=== PATIENT | male | born 1950 | race Hispanic/Latino ===

== ENCOUNTER 2017-09-18 17:15 | Observation (INO) | payer MEDICARE ==
[~2017-09-18] VITALS: Ht 172.7 cm; Wt 105.7 kg
[2017-09-18] MEDS ORDERED: ALBUTEROL SULF 0.083% NEB SOLN 3 ML NEB NEB STA (18:16)
[2017-09-18] MEDS ORDERED: SODIUM CHLORIDE 0.9% 1000ML 1,000 ML IV STA (18:16)
[2017-09-18] MEDS ORDERED: AZITHROMYCIN 500MG/NS 250 ML 250 ML IV STA (18:16)
[2017-09-18] MEDS ORDERED: IPRATROPIUM BROMIDE 0.02% 2.5 ML NEB NEB STA (18:16)
[2017-09-18] MEDS ORDERED: IBUPROFEN 600 MG TAB PO STA (18:18)
[2017-09-18] MEDS ORDERED: CEFTRIAXONE SOD 1 GM VIAL IV ONE (18:30)
--- NOTE | 2017-09-18 19:30 | Diagnostic Imaging Report ---
Examination: Single AP view of the chest. COMPARISON: None. INDICATION: Chest pain IMPRESSION: 1. Lines and Tubes: None 2. Lungs are mildly hypoinflated, with patchy opacity in the left retrocardiac region. This likely represents atelectasis given the low lung volumes, however, developing pneumonia is a consideration in the appropriate clinical setting. 3. Cardiomediastinal silhouette is normal. Pulmonary vasculature is normal. 4. No acute bony abnormalities. Signed by: Dr. Andrea Hayes M.D. on 09/18/2017 7:26 PM
[2017-09-18] MEDS ORDERED: IBUPROFEN 600 MG TAB ONE (22:21)
[2017-09-18 22:43] LABS: BASOPHILS # (AUTO) 0.1 (0.0-0.1); BASOPHILS % 0.8 % (0.0-1.0); EOSINOPHILS # (AUTO) 0.2 (0.0-0.4); EOSINOPHILS % 3.4 % (0.0-6.0); HEMOGLOBIN 14.6 g/dL (14.0-18.0); LYMPHOCYTES # (AUTO) 1.5 (1.0-3.2); LYMPHOCYTES % 24.1 % (18.0-39.1); MEAN CORPUSCULAR VOLUME 91.3 fL (81-99); MONOCYTES # (AUTO) 0.8 (0.2-0.8); MONOCYTES % 12.7 % (4.4-11.3); NEUTROPHILS # (AUTO) 3.7 (2.1-6.9); NEUTROPHILS % 58.8 % (38.7-80.0); PLATELET COUNT 173 x10e3/uL (140-360); RED BLOOD COUNT 4.71 x10e6/uL (4.3-5.7); RED CELL DISTRIBUTION WIDTH 12.9 % (11.7-14.4)
[2017-09-18 22:50] LABS: INR 0.94
[2017-09-18 22:51] LABS: PARTIAL THROMBOPLASTIN TIME 33.2 seconds (23.8-35.5)
[2017-09-18 23:00] LABS: ALBUMIN 3.8 g/dL (3.5-5.0); ALBUMIN/GLOBULIN RATIO 0.9 (0.8-2.0); ANION GAP 13.5 mmol/L (8-16); CALCIUM 8.9 mg/dL (8.4-10.2); CREATININE, SERUM 1.35 mg/dL (0.72-1.25); POTASSIUM 3.5 mmol/L (3.5-5.1)
[2017-09-18 23:05] LABS: B-TYPE NATRIURETIC PEPTIDE2 < 10.0 pg/mL (0-100)
[2017-09-18 23:06] LABS: CREATINE KINASE MB 0.9 ng/mL (0.00-5.00); TROPONIN I 0.008 ng/mL (0-0.300)
[2017-09-19] VITALS (7 sets, daily range): BP systolic 147–185; BP diastolic 68–86
[2017-09-19] MEDS ORDERED: IPRATROPIUM BROMIDE 0.02% 2.5 ML NEB NEB PRN
[2017-09-19] MEDS ORDERED: ALBUTEROL SULF 0.083% NEB SOLN 3 ML NEB NEB PRN
[2017-09-19] MEDS ORDERED: ACETAMINOPHEN 325 MG TAB PO PRN
[2017-09-19] MEDS: CEFTRIAXONE SOD 1 GM VIAL IV SCH ×2 (01:10→12:46)
[2017-09-19] MEDS: OSELTAMIVIR PHOSPHATE 75 MG CAP PO SCH ×3 (01:11→18:19)
[2017-09-19] MEDS: SODIUM CHLORIDE 0.9% 1000ML 1,000 ML IV SCH ×2 (03:24→20:14)
[2017-09-19 06:19] LABS: BASOPHILS % 0.8 % (0.0-1.0); EOSINOPHILS # (AUTO) 0.2 (0.0-0.4); EOSINOPHILS % 3.7 % (0.0-6.0); HEMATOCRIT 39.6 % (38.2-49.6); HEMOGLOBIN 13.4 g/dL (14.0-18.0); LYMPHOCYTES # (AUTO) 1.4 (1.0-3.2); LYMPHOCYTES % 27.8 % (18.0-39.1); MEAN CORPUSCULAR HEMOGLOBIN 30.9 pg (28-32); MEAN CORPUSCULAR HGB CONC 33.8 g/dL (31-35); MEAN CORPUSCULAR VOLUME 91.2 fL (81-99); MONOCYTES # (AUTO) 0.8 (0.2-0.8); MONOCYTES % 15.7 % (4.4-11.3); NEUTROPHILS # (AUTO) 2.5 (2.1-6.9); NEUTROPHILS % 51.8 % (38.7-80.0); PLATELET COUNT 155 x10e3/uL (140-360); RED BLOOD COUNT 4.34 x10e6/uL (4.3-5.7); RED CELL DISTRIBUTION WIDTH 12.7 % (11.7-14.4)
[2017-09-19 06:42] LABS: ALANINE AMINOTRANSFERASE 16 IU/L (0-55); ALBUMIN 3.3 g/dL (3.5-5.0); ALBUMIN/GLOBULIN RATIO 0.9 (0.8-2.0); ALKALINE PHOSPHATASE 53 IU/L (40-150); ANION GAP 13.2 mmol/L (8-16); BLOOD UREA NITROGEN 22 mg/dL (7-26); BUN/CREATININE RATIO 17 (6-25); CALCIUM 8.6 mg/dL (8.4-10.2); CARBON DIOXIDE 28 mmol/L (22-29); CHLORIDE 102 mmol/L (98-107); CREATINE KINASE 115 IU/L (30-200); CREATININE, SERUM 1.33 mg/dL (0.72-1.25); EST GLOMERULAR FILTRATION RATE 54 ML/MIN (60-); GLUCOSE 118 mg/dL (74-118); POTASSIUM 3.2 mmol/L (3.5-5.1); SODIUM 140 mmol/L (136-145)
[2017-09-19 06:51] LABS: TROPONIN I 0.015 ng/mL (0-0.300)
--- NOTE | 2017-09-19 07:07 | Diagnostic Imaging Report ---
EXAM: CT CHEST WO DATE: 09/19/2017 6:00 AM Time stamp on exam: 0628 hours INDICATION: Flu, shortness of breath COMPARISON: AP view of the chest September 18, 2017 TECHNIQUE: Multidetector CT scanning of the chest was performed. Coronal and sagittal multiplanar reformations were obtained. Routine protocol performed. IV Contrast: None CTDIvol has been reviewed. It is below the limits set by the Radiation Protocol Committee (RPC). FINDINGS: LUNGS AND AIRWAYS: The trachea and major bronchi are unremarkable. No consolidations or edema. Mild bibasilar bronchial thickening. Bibasilar linear atelectasis/scarring. PLEURA: No effusions or pneumothorax. HEART, MEDIASTINUM, VESSELS: Scattered coronary artery calcifications and calcification of the thoracic aorta, otherwise unremarkable. UPPER ABDOMEN: Unremarkable MUSCULOSKELETAL: No acute findings. IMPRESSION: Mild bibasilar bronchial thickening. No consolidations. Signed by: Dr. Edith Ledbetter M.D. on 09/19/2017 7:03 AM
[2017-09-19] MEDS ORDERED: POTASSIUM CHLORIDE 20 MEQ TAB CR PO ONE (09:30)
[2017-09-19] MEDS ORDERED: ATORVASTATIN CA10 MG PO (11:31)
[2017-09-19] MEDS ORDERED: NORVASC5 MG PO (11:31)
[2017-09-19] MEDS ORDERED: LOSARTAN-HCTZ1 EAC1 PO (11:31)
[2017-09-19] MEDS ORDERED: ASPIRIN325 MG PO (11:31)
[2017-09-19] MEDS: ASPIRIN 325 MG TAB PO SCH (12:46)
[2017-09-19] MEDS: LOSARTAN POTASSIUM 100 MG TAB PO SCH (12:46)
[2017-09-19] MEDS: HYDROCHLOROTHIAZIDE 25 MG TAB PO SCH (12:46)
[2017-09-19] MEDS: AMLODIPINE BESYLATE 5 MG TAB PO SCH (12:47)
--- NOTE | 2017-09-19 14:17 | Consultation ---
DATE OF CONSULTATION: September 19, 2017 PULMONARY CONSULTATION REASON FOR THE CONSULT: Cough and shortness of breath. Patient was called by Dr. Mckeon from the office that he is having lung infection and needs to come to the hospital. HPI: Mr. Shay is a 66-year-old male who was having cough, congestion, and shortness of breath going on for last few days and he went to see Dr. Mckeon, who did an x-ray. Patient received a shot in the office. The x-ray was done and it showed patchy infiltrate. The patient was advised to come to the hospital. In the hospital, patient underwent influenza testing, which turned out to be positive and patient was admitted for further treatment. He denies any chest pain, nausea, vomiting, diarrhea. REVIEW OF SYSTEMS GENERAL: Was having fever and chills. HEENT: Denies any head trauma or head injury. ENT: Denies any earache, nosebleed, throat pain. CVS: Denies any chest pain. The rest of the review of systems are negative except as in HPI. PAST MEDICAL HISTORY: Hypertension, history of stroke. PAST SURGICAL HISTORY: Hernia repair, right leg surgery after accident. FAMILY HISTORY AND SOCIAL HISTORY: Lifelong nonsmoker. Does not smoke, does not drink. PHYSICAL EXAMINATION VITALS: Temperature 97.8, pulse of 53, blood pressure 147/68, respiratory rate of 18. SKIN: Warm and dry. HEENT: Head atraumatic, normocephalic. Pupils reactive. NECK: Supple. No JVD. CHEST: Prolonged expiratory phase, some crackles on the bases; otherwise clear. HEART: S1, S2 audible. ABDOMEN: Soft, nontender, and nondistended. EXTREMITIES: No clubbing, cyanosis, or edema. NEUROLOGIC: Awake, alert, oriented. No focal neurologic deficit. The rest of the exam has been normal. LABORATORY DATA: White count of 4000, hemoglobin 13.4, platelets 155,000. Chemistry; sodium 140, potassium 3.2, chloride of 102, BUN 22, creatinine 1.33. CT of the chest, I have reviewed the images, possibility of a small left lower lobe infiltrate. ASSESSMENT AND PLAN: Mr. Shay is a 66-year-old male presented with fever, chills, tested positive for flu, a possibility of pneumonia as well. CURRENT PROBLEMS 1. Pneumonia. 2. Influenza. 3. History of stroke. 4. Hypertension. PLAN: Agree with current treatment with Rocephin and Tamiflu. Agree with nebulizer treatment as well. Thank you for this consult. We will follow along with you. Job#: [id number] PAT
[2017-09-19 15:45] LABS: CREATINE KINASE MB 1.5 ng/mL (0.00-5.00); TROPONIN I 0.013 ng/mL (0-0.300)
--- NOTE | 2017-09-19 16:20 | Consultation ---
DATE OF CONSULTATION: September 19, 2017 REASON FOR CONSULTATION: Pneumonia. HISTORY OF PRESENT ILLNESS: This patient is a very pleasant 56-year-old gentleman who comes in with 2 days' history of cough, shortness of breath and not feeling well, feverish. The patient had a chest x-ray which showed patchy infiltrates, and so he was admitted. On evaluation, he did have influenza A, which was positive. The patient is being admitted and infectious disease was consulted. He is telling me he is doing much better now. PAST MEDICAL HISTORY: Hypertension, stroke. PAST SURGICAL HISTORY: Hernia repair, leg surgery. ALLERGIES: NKA. SOCIAL HISTORY: There is no smoking, drug abuse, alcohol abuse. FAMILY HISTORY: Otherwise unremarkable. REVIEW OF SYSTEMS: At present time he is doing much better. HEENT: There is no headache, visual changes or hearing changes. GI: There is no nausea, no vomiting, no diarrhea. CARDIAC: There is no arrhythmia. NECK: No seizure activity. SKIN: No other rashes. PHYSICAL EXAMINATION: GENERAL: Is currently alert, oriented and does not seem to be in acute distress. VITALS: Stable, currently afebrile. HEENT: Not icteric. NECK: Supple. CHEST: Clear. COR: No murmur. ABDOMEN: Soft. Bowel sounds present. EXTREMITIES: Trace edema. IMPRESSION: 1. Influenza A. 2. Pneumonia. Clinically patient is doing much better now. 3. Chronic kidney disease. RECOMMENDATIONS: I agree with Tamiflu. Will finish it in 7 days. I agree with Rocephin and azithromycin. He is already feeling better. Can switch to oral antibiotics soon. Will see how he is doing tomorrow. Will follow with you. Thank you very much for asking me to see this patient. Job#: [id number]
[2017-09-19] MEDS: AZITHROMYCIN 500MG/NS 250 ML 250 ML IV SCH (20:14)
[2017-09-19] MEDS: ATORVASTATIN 10 MG TAB PO SCH (20:14)
[2017-09-20] VITALS: BP 153/72
[2017-09-20] MEDS: CEFTRIAXONE SOD 1 GM VIAL IV SCH ×2 (00:15→13:12)
[2017-09-20] MEDS: SODIUM CHLORIDE 0.9% 1000ML 1,000 ML IV SCH ×2 (01:56→16:12)
[2017-09-20 03:33] LABS: BILIRUBIN,URINE NEGATIVE (NEGATIVE); KETONES,URINE TRACE (NEGATIVE); LEUKOCYTE ESTERASE ,URINE NEGATIVE (NEGATIVE); NITRITE,URINE NEGATIVE (NEGATIVE); PROTEIN,URINE DIPSTICK NEGATIVE (NEGATIVE); URINE UROBILINOGEN 0.2 mg/dL (0.2 - 1)
[2017-09-20 03:34] LABS: CLARITY,URINE CLEAR (CLEAR); COLOR,URINE YELLOW (YELLOW)
[2017-09-20 03:40] LABS: BACTERIA,URINE RARE /HPF; RBC,URINE 0-5 /HPF (0-5); WBC,URINE (MAN) 0-5 /HPF (0-5)
[2017-09-20 05:10] VITALS: BP 165/90
[2017-09-20 08:07] VITALS: BP 181/86
[2017-09-20] MEDS: AZITHROMYCIN 500MG/NS 250 ML 250 ML IV SCH (08:40)
[2017-09-20] MEDS: OSELTAMIVIR PHOSPHATE 75 MG CAP PO SCH ×2 (08:40→16:35)
[2017-09-20] MEDS: ASPIRIN 325 MG TAB PO SCH (08:41)
[2017-09-20] MEDS: AMLODIPINE BESYLATE 5 MG TAB PO SCH (08:41)
[2017-09-20] MEDS: LOSARTAN POTASSIUM 100 MG TAB PO SCH (08:41)
[2017-09-20] MEDS: HYDROCHLOROTHIAZIDE 25 MG TAB PO SCH (08:41)
[2017-09-20] MEDS ORDERED: ASPIRIN 325 MG TAB PO SCH (09:00)
[2017-09-20] MEDS ORDERED: NON-FORMULARY MEDICATION (Losartan/Hydrochlorothiazide (Losartan-Hctz 100-25 Mg Tab) 1 TAB PO SCH (09:00)
[2017-09-20] MEDS ORDERED: CLONIDINE HCL 0.1 MG TAB PO PRN (09:15)
[2017-09-20 11:37] VITALS: BP 129/72
[2017-09-20 15:13] VITALS: BP 171/78
[2017-09-20] MEDS ORDERED: ONDANSETRON HCL INJ 2 MG/ML VIAL IV PRN (20:15)
[2017-09-20] MEDS: ATORVASTATIN 10 MG TAB PO SCH (21:05)
[2017-09-21 02:33] VITALS: BP 149/67
[2017-09-21 06:38] VITALS: BP 145/72
[2017-09-21 06:48] LABS: ANION GAP 13.6 mmol/L (8-16); BLOOD UREA NITROGEN 17 mg/dL (7-26); BUN/CREATININE RATIO 19 (6-25); CALCIUM 8.8 mg/dL (8.4-10.2); CARBON DIOXIDE 28 mmol/L (22-29); CHLORIDE 102 mmol/L (98-107); CREATININE, SERUM 0.91 mg/dL (0.72-1.25); EST GLOMERULAR FILTRATION RATE > 60 ML/MIN (60-); GLUCOSE 103 mg/dL (74-118); POTASSIUM 3.6 mmol/L (3.5-5.1); SODIUM 140 mmol/L (136-145)
[2017-09-21 07:30] VITALS: BP 163/77
[2017-09-21] MEDS: AZITHROMYCIN 500MG/NS 250 ML 250 ML IV SCH (08:22)
[2017-09-21] MEDS: ASPIRIN 325 MG TAB PO SCH (08:22)
[2017-09-21] MEDS: LOSARTAN POTASSIUM 100 MG TAB PO SCH (08:23)
[2017-09-21] MEDS: HYDROCHLOROTHIAZIDE 25 MG TAB PO SCH (08:23)
[2017-09-21] MEDS: OSELTAMIVIR PHOSPHATE 75 MG CAP PO SCH ×2 (08:23→16:52)
[2017-09-21] MEDS: AMLODIPINE BESYLATE 5 MG TAB PO SCH (08:23)
[2017-09-21 11:44] VITALS: BP 141/64
[2017-09-21] MEDS: CEFTRIAXONE SOD 1 GM VIAL IV SCH ×2 (12:49)
[2017-09-21 15:49] VITALS: BP 157/69
--- NOTE | 2017-09-21 16:41 | Diagnostic Imaging Report ---
PROCEDURE: X-RAY CHEST, TWO VIEWS COMPARISON: Chest x-ray 09/18/17. INDICATIONS: FLU, COUGH FINDINGS: LUNGS: Bibasilar atelectasis has improved. There is residual atelectasis or scar in the lingula. The diaphragms remain flattened suggestive of pulmonary hyperinflation. There is no evidence of mass or infiltrate. The pulmonary vascular markings are normal. PLEURA: No effusions or pneumothorax. HEART \T\ MEDIASTINUM: The heart is within normal size-limits. BONES \T\ SOFT TISSUES: No new findings. CONCLUSION: Improved bibasilar atelectasis. No new cardiopulmonary process. Dictated by: Nahid Gaines M.D. on 09/21/2017 at 16:49 Electronically approved by: Nahid Gaines M.D. on 09/21/2017 at 16:49
[2017-09-21 20:00] VITALS: BP 164/68
[2017-09-21] MEDS: ATORVASTATIN 10 MG TAB PO SCH (21:10)
[2017-09-21] MEDS: SODIUM CHLORIDE 0.9% 1000ML 1,000 ML IV SCH (21:38)
[2017-09-22] VITALS: BP 146/71
[2017-09-22] MEDS: CEFTRIAXONE SOD 1 GM VIAL IV SCH ×2 (01:07→11:38)
[2017-09-22 04:00] VITALS: BP 136/78
[2017-09-22 08:32] VITALS: BP 177/101
[2017-09-22] MEDS: LOSARTAN POTASSIUM 100 MG TAB PO SCH (08:51)
[2017-09-22] MEDS: AZITHROMYCIN 500MG/NS 250 ML 250 ML IV SCH (08:51)
[2017-09-22] MEDS: OSELTAMIVIR PHOSPHATE 75 MG CAP PO SCH (08:51)
[2017-09-22] MEDS: ASPIRIN 325 MG TAB PO SCH (08:51)
[2017-09-22] MEDS: AMLODIPINE BESYLATE 5 MG TAB PO SCH (08:51)
[2017-09-22] MEDS: HYDROCHLOROTHIAZIDE 25 MG TAB PO SCH (08:51)
[2017-09-22 09:54] VITALS: BP 154/74
[2017-09-22 09:55] VITALS: BP 154/74
--- NOTE | 2017-09-22 10:56 | Discharge Summary ---
Mr. Shay is a 66-year-old man with history of CVA and hypertension in the past, came to the emergency room complaining of body aches, fever, cough and phlegm, and back pain. He was found to have influenza A infection and probably pneumonia and started on Tamiflu and IV antibiotics for several days. He stated that he has some sputum with blood. He was seen by recreational assistant, but he refused the bronchoscopy. All the risks and benefits were discussed with him and he wants to go home today. He states he is feeling much better. PHYSICAL EXAMINATION GENERAL: He is awake and alert. VITAL SIGNS: Temperature is 96.3, pulse is 76, and O2 is 95. HEART: Regular rate. LUNGS: Clear to auscultation. ABDOMEN: Soft. LABORATORY DATA: On the blood work, potassium 3.6, creatinine 0.91, and glucose 103. White count is 4.90, hemoglobin 13.4, and hematocrit 39.6. DISCHARGE DIAGNOSES: 1. Influenza A. 2. Pneumonia. 3. Hypertension. 4. Bloody sputum. The plan is to discharge the patient home to continue his home medications. He is going to also be on p.o. Levaquin and p.o. Tamiflu upon discharge. Due to the blood in the sputum, recreational assistant wanted to do a bronchoscopy in the morning, but patient refused. He wants to go home. So, the plan is to discharge him home if it is okay with the consultants and have him follow up with me next week. All this was discussed with patient, all questions were answered to satisfaction. He is to call me or come back to the emergency room if any recurrent problems, fever, or bloody sputum. He understood and agreed. Please see home medication reconciliation list. MAREK CISSE MD Job#: [id number] PHILLIP
[2017-09-22 12:17] VITALS: BP 162/77
== END 2017-09-22 13:59 | disposition home or self-care (01) ==
LOC: ER 17:15 → ERHOLD 09-19 00:56 → IMCU 09-19 02:12
PROVIDERS: ADMIT Internal Medicine; ATTEND Internal Medicine
DX: J09.X1 Influenza due to identified novel influenza A virus with pneumonia (principal); J12.9 Viral pneumonia, unspecified; I89.0 Lymphedema, not elsewhere classified; N18.9 Chronic kidney disease, unspecified; Z86.73 Personal history of transient ischemic attack (TIA), and cerebral infarction without residual deficits; I12.9 Hypertensive chronic kidney disease with stage 1 through stage 4 chronic kidney disease, or unspecified chronic kidney disease; R04.2 Hemoptysis
CPT/HCPCS: 36415 ×2; 71010; 71020; 71250; 80048; 80053 ×2; 81001; 82550 ×2; 82553 ×2; 83518; 83605; 83690; 83880; 84484 ×2; 85025 ×2; 85610; 85730; 87040; 87070; 87086; 87400; 96361; 99284; G0378 ×4; J0456 ×4; J0696 ×4; J2405; J7030 ×3

== ENCOUNTER → 2017-09-18 | Outpatient (CLI) | payer MEDICARE ==
[~2017-09-18] MED LIST: ASPIRIN325 MG PO; ATORVASTATIN CA10 MG PO; LOSARTAN-HCTZ1 EAC1 PO; NORVASC5 MG PO
--- NOTE | 2017-09-18 14:38 | Diagnostic Imaging Report ---
PROCEDURE: Frontal and lateral views of the chest. COMPARISON: None. INDICATIONS: COUGH, DYSPNEA FINDINGS: Lines/tubes: None. Lungs: Limited by low lung volumes and body habitus. Mild hazy opacities in bilateral base. Pleura: There is no pleural effusion or pneumothorax. Heart and mediastinum: The heart and the mediastinum are normal. Bones: No acute bony abnormality. IMPRESSION: Mild hazy opacities in bilateral base, likely atelectasis. Developing pneumonia cannot be entirely excluded. Dictated by: Trung Baugh M.D. on 09/18/2017 at 14:46 Electronically approved by: Trung Baugh M.D. on 09/18/2017 at 14:46
== END ==
LOC: RAD 13:55
PROVIDERS: ATTEND Internal Medicine
DX: R05 Cough (principal)
CPT/HCPCS: 71020

== ENCOUNTER → 2018-01-17 | Outpatient (CLI) | payer MEDICARE ==
--- NOTE | 2018-01-17 15:31 | Diagnostic Imaging Report ---
PROCEDURE:X-RAY LEFT HEEL COMPARISON:None. INDICATIONS:LEFT HEEL PAIN FINDINGS: See conclusion. CONCLUSION: No acute fracture or dislocation of the left calcaneus. Dictated by: Trung Baugh M.D. on 01/17/2018 at 15:33 Electronically approved by: Trung Baugh M.D. on 01/17/2018 at 15:33
== END ==
LOC: RAD 13:31
PROVIDERS: ATTEND Internal Medicine
DX: M79.672 Pain in left foot (principal)

== ENCOUNTER → 2018-10-26 | Outpatient (CLI) | payer MEDICARE ==
--- NOTE | 2018-10-26 12:10 | Diagnostic Imaging Report ---
EXAM: US ABDOMEN COMPLETE DATE: 10/26/2018 9:56 AM INDICATION: Left sided abdominal pain. COMPARISON: None TECHNIQUE: Transverse and longitudinal [place] scale and color doppler sonographic images of the abdomen was obtained. FINDINGS: There is no evidence of fluid or masses seen in the area of clinical concern in the left abdomen. LIVER Measures 15.0 cm in the right midclavicular line. Increased echogenicity of the liver with normal contour, no masses. SPLEEN Measures 10.2 cm in maximum diameter. Normal echogenicity, no masses. GALLBLADDER No gallbladder wall thickening, distension, stone, or pericholecystic fluid. Negative reported sonographic Rodriguez's sign. BILE DUCTS No intra nor extra-hepatic biliary dilation. Common bile duct measures 0.3 cm PANCREAS: Limited evaluation due to overlying bowel gas. RIGHT KIDNEY: Measures 12.2 x 5.4 x 5.5 cm Echogenicity: Normal Collecting System: No hydronephrosis Stones: None Cyst/Mass: None LEFT KIDNEY: Measures 11.2 x 5.1 x 4.4 cm Echogenicity: Normal Collecting System: No hydronephrosis Stones: None Cyst/Mass: None VESSELS: Aorta: Limited evaluation due to overlying bowel gas. Inferior Vena Cava: Visualized portions are normal Main Portal Vein: 1.2 cm, normal size with hepatopetal flow. FREE FLUID: None IMPRESSION: No sonographic abnormality in the patient's area of pain in the left abdomen. Hepatic steatosis. Signed by: Dr. Nida Frey MD on 10/26/2018 12:07 PM
== END ==
LOC: US 09:50
PROVIDERS: ATTEND Internal Medicine
DX: R10.9 Unspecified abdominal pain (principal); K76.0 Fatty (change of) liver, not elsewhere classified
CPT/HCPCS: 76700

== ENCOUNTER 2020-03-21 09:28 | Inpatient (IN) | payer MEDICARE, OTHER ==
[~2020-03-21] VITALS: Ht 172.7 cm; Wt 105.7 kg
[~2020-03-21 09:28] MED LIST changes: +AZITHROMYCIN250 MG PO
[2020-03-21] MEDS ORDERED: SODIUM CHLORIDE 0.9% 1000ML 1,000 ML IV STA (10:30)
[2020-03-21] MEDS ORDERED: ACETAMINOPHEN 325 MG TAB PO ONE (11:00)
[2020-03-21] MEDS: CEFTRIAXONE SOD 1 GM/NS 50 ML 50 ML IV SCH (11:17)
[2020-03-21 11:25] LABS: BASOPHILS % 0.4 % (0.0-1.0); EOSINOPHILS % 0.1 % (0.0-6.0); HEMATOCRIT 41.5 % (38.2-49.6); HEMOGLOBIN 13.7 g/dL (14.0-18.0); LYMPHOCYTES % 13.7 % (18.0-39.1); MEAN CORPUSCULAR HEMOGLOBIN 29.9 pg (28-32); MEAN CORPUSCULAR VOLUME 90.6 fL (81-99); MONOCYTES # (AUTO) 0.8 (0.2-0.8); MONOCYTES % 10.1 % (4.4-11.3); NEUTROPHILS # (AUTO) 5.6 (2.1-6.9); PLATELET COUNT 249 x10e3/uL (140-360); RED BLOOD COUNT 4.58 x10e6/uL (4.3-5.7); RED CELL DISTRIBUTION WIDTH 12.4 % (11.7-14.4)
[2020-03-21 11:34] LABS: CLARITY,URINE SL CLOUDY (CLEAR); COLOR,URINE ORANGE (YELLOW)
[2020-03-21 11:35] LABS: LEUKOCYTE ESTERASE ,URINE NEGATIVE (NEGATIVE); NITRITE,URINE NEGATIVE (NEGATIVE); PROTEIN,URINE DIPSTICK >=300 (NEGATIVE)
[2020-03-21 11:36] LABS: BILIRUBIN,URINE SMALL (NEGATIVE); KETONES,URINE NEGATIVE (NEGATIVE); PARTIAL THROMBOPLASTIN TIME 32.6 seconds (23.8-35.5)
[2020-03-21 11:42] LABS: INR 0.97; PROTHROMBIN TIME 13.5 seconds (11.9-14.5)
[2020-03-21 11:44] LABS: BACTERIA,URINE RARE /HPF; EPITHELIAL CELLS,URINE FEW /LPF
[2020-03-21 11:48] LABS: ALANINE AMINOTRANSFERASE 23 IU/L (0-55); ALBUMIN 2.8 g/dL (3.5-5.0); ALBUMIN/GLOBULIN RATIO 0.7 (0.8-2.0); ALKALINE PHOSPHATASE 55 IU/L (40-150); ANION GAP 11.8 mmol/L (8-16); BLOOD UREA NITROGEN 12 mg/dL (7-26); BUN/CREATININE RATIO 13 (6-25); CALCIUM 9.1 mg/dL (8.4-10.2); CARBON DIOXIDE 27 mmol/L (22-29); CHLORIDE 103 mmol/L (98-107); CREATINE KINASE 59 IU/L (30-200); CREATININE, SERUM 0.95 mg/dL (0.72-1.25); EST GLOMERULAR FILTRATION RATE > 60 ML/MIN (60-); GLUCOSE 120 mg/dL (74-118); POTASSIUM 3.8 mmol/L (3.5-5.1); SODIUM 138 mmol/L (136-145)
[2020-03-21 11:52] LABS: B-TYPE NATRIURETIC PEPTIDE2 25.4 pg/mL (0-100)
[2020-03-21] MEDS: AZITHROMYCIN 500MG/NS 250 ML 250 ML IV SCH (12:04)
--- NOTE | 2020-03-21 12:05 | Diagnostic Imaging Report ---
EXAMINATION: CHEST SINGLE (PORTABLE) INDICATION: COUGH, SOB COMPARISON: CT chest dated 10/10/2019. Chest x-ray dated 06/23/2019. FINDINGS: AP view TUBES and LINES: None. LUNGS/PLEURA: Lungs are well inflated. There are new bilateral patchy opacities could represent multifocal pneumonia. There is new obscuration of bilateral costophrenic angles which could be due to effusion and or atelectasis. HEART AND MEDIASTINUM: The cardiomediastinal silhouette is unremarkable. BONES AND SOFT TISSUES: No acute osseous lesion. Soft tissues are unremarkable. UPPER ABDOMEN: No free air under the diaphragm. IMPRESSION: New bilateral patchy opacities could represent multifocal pneumonia. There New obscuration of bilateral costophrenic angles which could be due to effusion and or atelectasis. Signed by: Jaleel Lange MD on 03/21/2020 12:02 PM
--- NOTE | 2020-03-21 12:27 | Emergency Department Note ---
History of Present Illnes History of Present Illness Chief Complaint: COVID PUI History of Present Illness This is a 69 year old male sob x 2 days with n/v and fever no diarrhea, muscle aches no sore throat has not been swabbed for covid. Historian: Patient Arrival Mode: Car Newspaper Copy Editor Required: No Onset (how long ago): day(s) (2) Radiation: Reports non-radiation Severity: moderate Timing of current episode: intermittent Progression: waxing and waning Chronicity: new Context: Denies recent illness Relieving factors: none Exacerbating factors: none Associated symptoms: Reports denies other symptoms Treatments prior to arrival: none Past Medical/Family History Physician Review I have reviewed the patient's past medical and family history. Any updates have been documented here. Past Medical History Recent Fever: Yes Clinical Suspicion of Infectio: Yes New/Unexplained Change in Ment: No Past Medical History: Hypertension Other Medical History: Seasonal allergies Other Surgery: groin hernia Social History Smoking Cessation: Never Smoker Counseling Performed: No Alcohol Use: None Any Illegal Drug Use: No Physically hurt or threatened: No Other Last Tetanus: OUT OF DATE Any Pre-Existing Lines (PICC,: No Review of Systems Review of Systems Constitutional: Reports as per HPI, Reports fever EENTM: Reports no symptoms Cardiovascular: Reports no symptoms Respiratory: Reports dyspnea on exertion Gastrointestinal: Reports as per HPI, Reports nausea, Reports vomiting Genitourinary: Reports no symptoms Musculoskeletal: Reports no symptoms Integumentary: Reports no symptoms Neurological: Reports no symptoms Psychological: Reports no symptoms Endocrine: Reports no symptoms Hematological/Lymphatic: Reports no symptoms Physical Exam Related Data Allergies: Coded Allergies: No Known Allergies (Unverified , 09/18/17) Triage Vital Signs Vital Signs Date Time Temp Pulse Resp B/P (MAP) Pulse Ox O2 Delivery O2 Flow Rate FiO2 03/21/20 10:20 101.0 85 20 174/77 92 Room Air Vital signs reviewed: Yes Physical Exam CONSTITUTIONAL Constitutional: Present well-developed, Present well-nourished HENT HENT: Present normocephalic, Present atraumatic, Present oropharynx normal, Present mucosae dry HENT L/R: Present left ext ear normal, Present right ext ear normal EYES Eyes: Reports PERRL, Reports conjunctivae normal NECK Neck: Present ROM normal PULMONARY Pulmonary: Present respiratory distress (MILD TACHYPNEA), Present other (DECR BS BILAT BASES) CARDIOVASCULAR Cardiovascular: Present regular rhythm, Present heart sounds normal, Present capillary refill normal, Present normal rate GASTROINTESTINAL Abdominal: Present soft, Present nontender, Present bowel sounds normal GENITOURINARY Genitourinary: Present exam deferred SKIN Skin: Present warm, Present dry MUSCULOSKELETAL Musculoskeletal: Present ROM normal NEUROLOGICAL Neurological: Present alert, Present oriented x 3, Present no gross motor or sensory deficits PSYCHOLOGICAL Psychological: Present mood/affect normal, Present judgement normal Results Laboratory Result Diagram: 03/21/20 1030 03/21/20 1030 Laboratory Laboratory Tests Test 03/21/20 10:30 White Blood Count 7.52 x10e3/uL (4.8-10.8) Red Blood Count 4.58 x10e6/uL (4.3-5.7) Hemoglobin 13.7 g/dL (14.0-18.0) Hematocrit 41.5 % (38.2-49.6) Mean Corpuscular Volume 90.6 fL (81-99) Mean Corpuscular Hemoglobin 29.9 pg (28-32) Mean Corpuscular Hemoglobin Concent 33.0 g/dL (31-35) Red Cell Distribution Width 12.4 % (11.7-14.4) Platelet Count 249 x10e3/uL (140-360) Neutrophils (%) (Auto) 75.0 % (38.7-80.0) Lymphocytes (%) (Auto) 13.7 % (18.0-39.1) Monocytes (%) (Auto) 10.1 % (4.4-11.3) Eosinophils (%) (Auto) 0.1 % (0.0-6.0) Basophils (%) (Auto) 0.4 % (0.0-1.0) Neutrophils # (Auto) 5.6 (2.1-6.9) Lymphocytes # (Auto) 1.0 (1.0-3.2) Monocytes # (Auto) 0.8 (0.2-0.8) Eosinophils # (Auto) 0.0 (0.0-0.4) Basophils # (Auto) 0.0 (0.0-0.1) Absolute Immature Granulocyte (auto 0.05 x10e3/uL (0-0.1) Prothrombin Time 13.5 seconds (11.9-14.5) Prothromb Time International Ratio 0.97 Activated Partial Thromboplast Time 32.6 seconds (23.8-35.5) Urine Color [place] (YELLOW) Urine Clarity Sl cloudy (CLEAR) Urine pH 6.5 (5 - 7) Urine Specific [place] >=1.030 (1.010-1.025) Urine Protein >=300 (NEGATIVE) Urine Glucose (UA) Negative (NEGATIVE) Urine Ketones Negative (NEGATIVE) Urine Blood Trace (NEGATIVE) Urine Nitrite Negative (NEGATIVE) Urine Bilirubin Small (NEGATIVE) Urine Urobilinogen 2.0 mg/dL (0.2 - 1) Urine Leukocyte Esterase Negative (NEGATIVE) Urine RBC 6-10 /HPF (0-5) Urine WBC 6-10 /HPF (0-5) Urine Epithelial Cells Few /LPF (NONE) Urine Bacteria Rare /HPF (NONE) Sodium Level 138 mmol/L (136-145) Potassium Level 3.8 mmol/L (3.5-5.1) Chloride Level 103 mmol/L (98-107) Carbon Dioxide Level 27 mmol/L (22-29) Anion Gap 11.8 mmol/L (8-16) Blood Urea Nitrogen 12 mg/dL (7-26) Creatinine 0.95 mg/dL (0.72-1.25) Estimat Glomerular Filtration Rate > 60 ML/MIN (60-) BUN/Creatinine Ratio 13 (6-25) Glucose Level 120 mg/dL (74-118) Lactic Acid Level 1.3 mmol/L (0.5-2.0) Calcium Level 9.1 mg/dL (8.4-10.2) Total Bilirubin 0.5 mg/dL (0.2-1.2) Aspartate Amino Transf (AST/SGOT) 26 IU/L (5-34) Alanine Aminotransferase (ALT/SGPT) 23 IU/L (0-55) Alkaline Phosphatase 55 IU/L (40-150) Creatine Kinase 59 IU/L (30-200) Creatine Kinase MB 0.60 ng/mL (0-5.0) Troponin I 0.013 ng/mL (0-0.300) B-Type Natriuretic Peptide 25.4 pg/mL (0-100) Total Protein 7.1 g/dL (6.5-8.1) Albumin 2.8 g/dL (3.5-5.0) Globulin 4.3 g/dL (2.3-3.5) Albumin/Globulin Ratio 0.7 (0.8-2.0) Lab results reviewed: Yes Imaging Imaging results reviewed: Yes Impressions Procedure: [id number] DX/CHEST SINGLE (PORTABLE) Exam Date: 03/21/20 Exam Time: 1125 REPORT STATUS: Signed EXAMINATION: CHEST SINGLE (PORTABLE) INDICATION: COUGH, SOB COMPARISON: CT chest dated 10/10/2019. Chest x-ray dated 06/23/2019. FINDINGS: AP view TUBES and LINES: None. LUNGS/PLEURA: Lungs are well inflated. There are new bilateral patchy opacities could represent multifocal pneumonia. There is new obscuration of bilateral costophrenic angles which could be due to effusion and or atelectasis. HEART AND MEDIASTINUM: The cardiomediastinal silhouette is unremarkable. BONES AND SOFT TISSUES: No acute osseous lesion. Soft tissues are unremarkable. UPPER ABDOMEN: No free air under the diaphragm. IMPRESSION: New bilateral patchy opacities could represent multifocal pneumonia. There New obscuration of bilateral costophrenic angles which could be due to effusion and or atelectasis. Signed by: Jaleel Lange MD on 03/21/2020 12:02 PM Procedures 12 Lead ECG Interpretation ECG Interpretation : ECG: ECG 1 Newspaper Copy Editor: Interpreted by ED physician Date: Mar 21, 2020 Time: 10:34 Rhythm: sinus rhythm Rate: normal (81) QRS axis: normal ST segments normal: Yes T waves normal: Yes Clinical Impression: normal ECG Assessment & Plan Medical Decision Making MDM CBC, CHEM, ECG, CARDIACS, BNP, PANCX'S, LACTIC, CXR, UA, COVID SWAB - R/O COVID, PNEUMONIA, ELECTROLYTE ABNL, SEPSIS, UTI, STEMI/NSTEMI, DEHYDRATION/RENAL INSUFF Reassessment Reassessment O2 SAT 92%, DROPPED TO 89% ON RA WITH MARCHING IN PLACE FOR ~30 SECONDS AND TACHYPNEA - ADMIT - i spoke with dr verduzco and minerva diaz Assessment & Plan Final Impression: (1) Pneumonia due to COVID-19 virus (2) Nausea & vomiting (3) Hypoxia Depart Disposition: ADMITTED Last Vital Signs Date Time Temp Pulse Resp B/P (MAP) Pulse Ox O2 Delivery O2 Flow Rate FiO2 03/21/20 12:04 99.2 73 18 171/69 95 03/21/20 10:20 Room Air Home Meds Active Scripts Azithromycin (Z-BESSY) 250 Mg Tablet, 1 PKG PO DIRECTED, #1 PKG 0 Refills Prov:GRISELDA LU INVESTIGATIVE ANALYST 06/23/19 Reported Medications Atorvastatin Calcium (ATORVASTATIN CALCIUM) 10 Mg Tablet, 10 MG PO 2100, #30 TAB 09/19/17 Aspirin (ASPIRIN) 325 Mg Tablet, 1 MG PO DAILY, #30 TAB 09/19/17 Losartan/Hydrochlorothiazide (LOSARTAN-HCTZ 100-25 MG TAB) 1 Each Tablet, 1 TAB PO DAILY 09/19/17 Amlodipine Besylate (NORVASC) 5 Mg Tab, 5 MG PO DAILY, #30 TAB 09/19/17 Medications in the ED Sodium Chloride 1,000 ml @ 0 mls/hr Q0M STAT IV Last administered on 03/21/20at 11:15; Admin Dose 999 MLS/HR; Start 03/21/20 at 10:30; Stop 03/21/20 at 10:33; Status DC Ceftriaxone Sodium 50 ml @ 100 mls/hr Q24H IV Last administered on 03/21/20at 11:17; Admin Dose 100 MLS/HR; Start 03/21/20 at 11:00; Stop 03/28/20 at 10:59 Azithromycin 250 ml @ 200 mls/hr DAILY IV Last administered on 03/21/20at 12 :04; Admin Dose 200 MLS/HR; Start 03/21/20 at 11:30; Stop 03/28/20 at 11:29 Acetaminophen 975 mg ONCE ONCE PO Last administered on 03/21/20at 11:19; Admin Dose 975 MG; Start 03/21/20 at 11:00; Stop 03/21/20 at 11:01; Status DC TRICIA POWERS MD Mar 21, 2020 12:27
[2020-03-21] MEDS ORDERED: ONDANSETRON HCL INJ 2MG/ML 2ML 2 MG/ML VIAL IV PRN (14:15)
[2020-03-21 15:00] VITALS: BP_SYST 164; BP_SYST 171; BP_DIAS 71; BP_DIAS 75
--- NOTE | 2020-03-21 15:00 | NUR ---
PATIENT RECEIVED FROM ER PER WHEEL CHAIR. ALERT AND VERBALLY RESPONSIVE. AMBULATED TO THE RESTROOM BY SELF AND BACK TO BED. SKIN WARM AND DRY TO TOUCH, RESPIRATION EVEN AND UNLABORED, O2 IN PLACE VIA N/C. ABDOMEN SOFT , LARGE AND NON DISTENDED. TELEMETRY BOX [address]. PATIENT ORIENTED TO SURROUNDINGS. BED IN LOWER POSITION AND LOCKED. CALL LIGHT AT REACH. INSTRUCTED TO CALL FOR ASSISTANCE NEEDED.
[2020-03-21] MEDS ORDERED: ACETAMINOPHEN 325 MG TAB PO PRN ×2 (16:00→19:00)
[2020-03-21] MEDS ORDERED: GUAIFENESIN/CODEINE 10 ML CUP PO PRN (16:00)
[2020-03-21] MEDS: FAMOTIDINE 20 MG/2 ML VIAL IV SCH (16:00)
[2020-03-21 16:09] VITALS: BP 164/75
--- NOTE | 2020-03-21 18:51 | Consultation ---
DATE OF CONSULTATION: Pulmonary Critical Care Consultation CHIEF COMPLAINT: Cough, dyspnea, and fevers. HISTORY OF PRESENT ILLNESS: The patient is 69-year-old man. He has a history of prior CVA in the remote past and hypertension. He was also admitted to [facility] in 2018 for influenza. He now complains of worsening dyspnea and cough for 3 days. He notes shortness of breath. He is having pain with inspiration. He has noting fevers. He denies nausea or vomiting. PAST SURGICAL HISTORY: 1. Status post hernia repair. 2. Status post leg surgery. SOCIAL HISTORY: The patient has never been a smoker. He is not a drinker. PAST MEDICAL HISTORY: 1. History of hypertension. 2. Remote history of stroke. 3. No history of diabetes. 4. No history of heart disease. FAMILY HISTORY: Noncontributory. ALLERGIES: NO KNOWN DRUG ALLERGIES. REVIEW OF SYSTEMS: He reports fever. He has no headache. He has no neck pain. He is not complaining of any sore throat. He does have some cough. He has pain with inspiration. He has no nausea or vomiting. He has no abdominal pain. He is not complaining of any leg edema. PHYSICAL EXAMINATION: VITAL SIGNS: The blood pressure is 171/70, saturation is 97% on 2 L. His respiratory rate is mildly increased. His pulse is 67. HEENT: Shows no facial swelling or erythema. LYMPHATIC: Shows no submandibular, cervical, or supraclavicular adenopathy. CARDIAC: Reveals regular rate and rhythm with normal S1, S2. LUNGS: Auscultation of lungs reveals rhonchorous breath sounds bilaterally. There is no wheezing. ABDOMEN: Soft, nontender. There is no rebound or guarding. EXTREMITIES: Shows no leg edema or calf tenderness. There is no cyanosis or clubbing. SKIN: Shows no rashes. NEUROLOGICAL: Shows no focal abnormalities. LABORATORY DATA: White blood cell count is 7.5 and hemoglobin is 15.7. The platelet count is 249. BUN to creatinine ratio is normal. Albumin is 2.8. COVID test is pending. RADIOGRAPHIC DATA: Chest x-ray shows patchy bilateral infiltrates. IMPRESSION: 1. Viral pneumonia and possible COVID-19 infection. 2. Hypertension. 3. Remote history of cerebrovascular accident. PLAN: 1. Continue supplemental oxygen. 2. Zithromax and Rocephin. 3. Treatment of cough. 4. Assuming COVID-19 test is positive, then begin Decadron. 5. Bronchodilators as needed. 6. Monitor and control blood pressure. MD CEDRICK Dorman/REMIGIO /[id number]
--- NOTE | 2020-03-21 18:58 | NUR ---
H&P cc: sob HPI: 69yoM, PCP unknown, developed sob, found to have multifocal PNA. Pt unable to provide much history. PMH: Influenza A infection, PNA, HTN, Stroke PSHx: hernia, right leg after accident Allergies; see emr FH/SH; Meds; see MAR ROS: unreliable v/s revd PE tired appearing anicteric ns1s2 reduced BS;increased RR soft nt nd no e/t skin dry flat affect awake labs/meds revd A/P: 69yoM Multifocal PNA- IV abx; await coronavirus test results Obesity- screen for DM BMI 35.4- as above Hx stroke Prop: AC DIspo: Ezio Falk MD, PhD.
[2020-03-21] MEDS ORDERED: GUAIFENESIN/DEXTROMETHORPHAN LIQD 5 ML UDC NG PRN (19:00)
[2020-03-21] MEDS ORDERED: DOCUSATE SODIUM 100 MG CAP PO PRN (19:00)
[2020-03-21 20:00] VITALS: BP 186/82
--- NOTE | 2020-03-21 20:19 | NUR ---
Received pt in bed awake a/ox4. C/O being cold, extra blanket provided. Temp noted at 101.0. Call placed to md for notification, no orders given. Pt bed in low position and locked. Personal items and call light within reach. No s/sx of acute distress. Will cont to mon.
[2020-03-21 20:40] VITALS: BP 186/82
[2020-03-21] MEDS ORDERED: ZOLPIDEM TARTRATE 5 MG TAB PO PRN (21:00)
[2020-03-21] MEDS: ATORVASTATIN 10 MG TAB PO SCH (21:17)
[2020-03-21] MEDS: ENOXAPARIN SOD INJ 40 MG/0.4 ML SYR SC SCH (21:17)
[2020-03-21] MEDS: BENZONATATE 100 MG CAP PO SCH (21:17)
[2020-03-21] MEDS: HYDRALAZINE HCL 20 MG/ML VIAL IV PRN (21:20)
[2020-03-21 21:28] LABS: CHOL/HDL RATIO 4.6 (3.9-4.7)
[2020-03-22] VITALS (9 sets, daily range): BP systolic 143–188; BP diastolic 60–79
[2020-03-22 01:55] LABS: CREATINE KINASE MB 0.9 ng/mL (0-5.0)
[2020-03-22] MEDS: FAMOTIDINE 20 MG/2 ML VIAL IV SCH ×2 (05:24→14:32)
[2020-03-22 06:06] LABS: BASOPHILS % 0.1 % (0.0-1.0); EOSINOPHILS % 0.4 % (0.0-6.0); HEMATOCRIT 39.1 % (38.2-49.6); HEMOGLOBIN 13.1 g/dL (14.0-18.0); LYMPHOCYTES # (AUTO) 1.2 (1.0-3.2); LYMPHOCYTES % 17.1 % (18.0-39.1); MEAN CORPUSCULAR HEMOGLOBIN 29.9 pg (28-32); MEAN CORPUSCULAR HGB CONC 33.5 g/dL (31-35); MEAN CORPUSCULAR VOLUME 89.3 fL (81-99); MONOCYTES # (AUTO) 0.6 (0.2-0.8); MONOCYTES % 9.2 % (4.4-11.3); NEUTROPHILS % 72.5 % (38.7-80.0); PLATELET COUNT 252 x10e3/uL (140-360); RED BLOOD COUNT 4.38 x10e6/uL (4.3-5.7); RED CELL DISTRIBUTION WIDTH 12.3 % (11.7-14.4)
[2020-03-22 06:24] LABS: ALANINE AMINOTRANSFERASE 28 IU/L (0-55); ALBUMIN 2.4 g/dL (3.5-5.0); ALBUMIN/GLOBULIN RATIO 0.6 (0.8-2.0); ALKALINE PHOSPHATASE 48 IU/L (40-150); ANION GAP 10.5 mmol/L (8-16); BLOOD UREA NITROGEN 11 mg/dL (7-26); BUN/CREATININE RATIO 14 (6-25); CALCIUM 8.4 mg/dL (8.4-10.2); CARBON DIOXIDE 26 mmol/L (22-29); CHLORIDE 107 mmol/L (98-107); CHOL/HDL RATIO 5.3 (3.9-4.7); CHOLESTEROL 128 MD/DL (0-199); CREATININE, SERUM 0.78 mg/dL (0.72-1.25); EST GLOMERULAR FILTRATION RATE > 60 ML/MIN (60-); GLUCOSE 113 mg/dL (74-118); HDL CHOLESTEROL 24 MG/DL (40-60); LDL CHOLESTEROL 91 MG/DL (60-130); POTASSIUM 3.5 mmol/L (3.5-5.1); SODIUM 140 mmol/L (136-145); TRIGLYCERIDES 67 MG/DL (0-149)
--- NOTE | 2020-03-22 07:26 | NUR ---
PATIENT ASSISTED WITH URINAL, SITTING AT BED SIDE WITH CALL LIGHT AT DEREACH.
[2020-03-22] MEDS: HYDRALAZINE HCL 20 MG/ML VIAL IV PRN (08:15)
[2020-03-22] MEDS ORDERED: SODIUM CHLORIDE 0.9% 250ML 250 ML ONE (08:16)
--- NOTE | 2020-03-22 08:37 | Diagnostic Imaging Report ---
Examination: Single AP view of the chest. COMPARISON: March 21, 2020 INDICATION: Viral pneumonia DISCUSSION: Lines/tubes: None. Lungs: Increased multifocal predominantly peripheral consolidations. Pleura: No pleural effusion or pneumothorax. Heart and mediastinum: The heart and the mediastinum are unremarkable. Bones and soft tissues: No acute bony abnormalities. IMPRESSION: Increased predominant peripheral consolidations. Signed by: Dr. Fede Lutz M.D. on 03/22/2020 8:34 AM
--- NOTE | 2020-03-22 09:00 | NUR ---
PATIENT NOTED WITH B/P OF 188/69, PRN MEDICATION GIVEN ORDERED. B/P RECHECKED WITH THE READING OF 162/72. WILL CLOSELY MONITOR.
[2020-03-22] MEDS: BENZONATATE 100 MG CAP PO SCH ×3 (09:20→19:59)
[2020-03-22] MEDS: ENOXAPARIN SOD INJ 40 MG/0.4 ML SYR SC SCH ×2 (09:20→19:59)
[2020-03-22] MEDS: LORATADINE 10 MG TAB PO SCH (09:20)
[2020-03-22] MEDS: AZITHROMYCIN 500MG/NS 250 ML 250 ML IV SCH (09:20)
[2020-03-22] MEDS: NIFEDIPINE CR 30 MG TAB PO SCH ×2 (10:04→19:59)
[2020-03-22] MEDS: OLOPATADINE 5 ML BTL OP SCH ×2 (10:05→17:21)
[2020-03-22] MEDS: FLUTICASONE PROPIONATE NASAL SPRAY NS SCH (11:00)
--- NOTE | 2020-03-22 11:27 | NUR ---
PATIENT ASSISTED TO THE RESTROOM AND BACK TO BED. HAD A LARGE BM, O2 IN PLACE. CALL LIGHT AT REACH.
[2020-03-22] MEDS: CEFTRIAXONE SOD 1 GM/NS 50 ML 50 ML IV SCH (12:16)
[2020-03-22] MEDS ORDERED: ALPRAZOLAM 1 MG TAB PO PRN ×2 (15:45→16:00)
--- NOTE | 2020-03-22 15:57 | NUR ---
PATIENT C/O MALOU, NOTIFIED, NEW ORDER RECEIVED.
[2020-03-22] MEDS: ATORVASTATIN 10 MG TAB PO SCH (19:59)
[2020-03-22] MEDS: DEXAMETHASONE SOD PHOS INJ 4 MG/ML VIAL IV SCH (19:59)
--- NOTE | 2020-03-22 20:00 | Progress Note ---
DATE: SUBJECTIVE: The patient is having some anxiety. He received some Xanax, but now he is sleeping. Increased respiratory rate, but his saturations are good on 2 L. PHYSICAL EXAMINATION: VITAL SIGNS: Blood pressure is 149/60 and the pulse is 82. The saturation is 95%. HEENT: Shows no facial swelling or erythema. CARDIAC: Reveals regular rate and rhythm with normal S1 and S2. LUNGS: Auscultation of lungs reveals rhonchorous breath sounds bilaterally. There is no wheezing. ABDOMEN: Soft and nontender. There is no rebound or guarding. EXTREMITIES: Shows no leg edema or calf tenderness. There is no cyanosis or clubbing. SKIN: Shows no rashes. NEUROLOGICAL: Shows no focal abnormalities. LABORATORY DATA: BUN to creatinine ratio is normal. Electrolytes within normal limits. CBC is normal. RADIOGRAPHIC DATA: Chest x-ray shows bilateral peripheral infiltrates. IMPRESSION: 1. Viral pneumonia and COVID-19 infection. 2. Hypertension. 3. Remote history of cerebrovascular accident. PLAN: 1. Continue supplemental oxygen. 2. Zithromax and Rocephin. 3. Decadron. 4. Monitor blood pressures. Bairon Barr MD [facility]/MODL /[id number]
[2020-03-23] MEDS: FAMOTIDINE 20 MG/2 ML VIAL IV SCH ×2 (03:15→14:58)
[2020-03-23 04:36] VITALS: BP 147/73
[2020-03-23 08:00] VITALS: BP 136/57
[2020-03-23] MEDS: AZITHROMYCIN 500MG/NS 250 ML 250 ML IV SCH (08:50)
[2020-03-23] MEDS: OLOPATADINE 5 ML BTL OP SCH ×2 (08:51→16:20)
[2020-03-23] MEDS: FLUTICASONE PROPIONATE NASAL SPRAY NS SCH (08:51)
[2020-03-23] MEDS: LORATADINE 10 MG TAB PO SCH (08:51)
[2020-03-23] MEDS: BENZONATATE 100 MG CAP PO SCH ×3 (08:52→21:00)
[2020-03-23] MEDS: ENOXAPARIN SOD INJ 40 MG/0.4 ML SYR SC SCH ×2 (08:52→21:00)
[2020-03-23] MEDS: NIFEDIPINE CR 30 MG TAB PO SCH ×2 (08:52→21:00)
[2020-03-23] MEDS: ASCORBIC ACID 500 MG TAB PO SCH ×2 (08:52→16:20)
[2020-03-23] MEDS: ZINC SULFATE 220 MG CAP PO SCH (09:00)
[2020-03-23] MEDS: CEFTRIAXONE SOD 1 GM/NS 50 ML 50 ML IV SCH (11:40)
[2020-03-23 12:00] VITALS: BP 135/69
[2020-03-23] MEDS: DEXAMETHASONE SOD PHOS INJ 4 MG/ML VIAL IV SCH (12:06)
[2020-03-23 15:57] VITALS: BP 147/67
--- NOTE | 2020-03-23 17:04 | Progress Note ---
DATE: SUBJECTIVE: The patient is walking about 80 feet with physical therapy. He still has some fatigue and dyspnea. PHYSICAL EXAMINATION: VITAL SIGNS: The blood pressure is 135/70 and saturation is 94% on 3 L. HEENT: Shows no facial swelling or erythema. CARDIAC: Reveals regular rate and rhythm with normal S1 and S2. LUNGS: Auscultation of lungs reveals clear breath sounds bilaterally. There is no wheezing. ABDOMEN: Soft and nontender. There is no rebound or guarding. EXTREMITIES: Shows no leg edema or calf tenderness. There is no cyanosis or clubbing. SKIN: Shows no rashes. NEUROLOGICAL: Shows no focal abnormalities. LABORATORY DATA: CBC is within normal limits. BUN to creatinine ratio and other electrolytes are within normal limits. IMPRESSION: 1. Viral pneumonia and COVID-19 infection. 2. Hypertension. 3. Remote history of cerebrovascular accident. PLAN: 1. Continue supplemental oxygen. 2. Physical therapy. 3. Complete Decadron. 4. Complete Zithromax and Rocephin. 5. Monitor blood pressures. 6. Possible discharge home. Bairon Barr MD [facility] /[id number]
--- NOTE | 2020-03-23 18:58 | NUR ---
IM- progress note O/N see below ROS: unreliable v/s revd PE tired appearing anicteric ns1s2 reduced BS;increased RR soft nt nd no e/t skin dry flat affect awake labs/meds revd A/P: 69yoM Multifocal PNA- IV abx; await coronavirus test results Obesity- screen for DM BMI 35.4- as above Hx stroke Prop: AC DIspo: 7-12 some chills/sweats; cont supportive care; Ezio Falk MD, PhD.
--- NOTE | 2020-03-23 18:59 | NUR ---
IM- progress note O/N see below ROS: unreliable v/s revd PE tired appearing anicteric ns1s2 reduced BS;increased RR soft nt nd no e/t skin dry flat affect awake labs/meds revd A/P: 69yoM Multifocal PNA- IV abx; await coronavirus test results Obesity- screen for DM BMI 35.4- as above Hx stroke Prop: AC DIspo: 7-12 some chills/sweats; cont supportive care; 7-13 doing ok; cont care; f/u ID recs; PT kota Falk MD, PhD.
--- NOTE | 2020-03-23 19:14 | Consultation ---
DATE OF CONSULTATION: REASON FOR CONSULTATION: COVID-19. HISTORY OF PRESENT ILLNESS: Mr. Shay is a 69-year-old gentleman who has been sick for more than 2 weeks, getting progressively worse. The patient who have history of CVA long time ago, hypertension, comes in to the emergency room with shortness of breath and cough for 2 weeks according to him. The patient has history of hernia repair and neck surgery. The patient also is [employer] because I did offer him he refused. The patient has history of hypertension and CVA. Otherwise, lying in bed comfortably. LABORATORY DATA: Reviewed. His COVID-19 was positive. His sodium 140, potassium 3.5, and creatinine 0.78. PHYSICAL EXAMINATION: GENERAL: He is currently alert, oriented, does not seem to be in acute distress. VITAL SIGNS: Stable, currently afebrile. When he first came, was on 2 L and today of 4 L of oxygen HEENT: Not icteric. NECK: Supple. CHEST: Clear. HEART: S1 and S2. ABDOMEN: Soft. Bowel sounds present. EXTREMITIES: No edema. SKIN: No rash. IMPRESSION: COVID-19, respiratory failure too late for Remdesivir. Agree with Rocephin 1 g daily, azithromycin 500 mg daily, Rocephin for 5 days, azithromycin for 3 days, Lovenox 0.5 mg/kg q.12 hours. Decadron 6 mg daily for 10 days to continue all his home medication. He will continue with droplet isolation. Discussed with the patient and discussed with the medical team. I will follow. MD KATIE Mejia/REMIGIO /[id number]
[2020-03-23 20:00] VITALS: BP 146/71
[2020-03-23] MEDS: ATORVASTATIN 10 MG TAB PO SCH (21:00)
[2020-03-23 23:41] VITALS: BP 145/69
[2020-03-24] VITALS (7 sets, daily range): BP systolic 130–173; BP diastolic 65–76
[2020-03-24] MEDS: FAMOTIDINE 20 MG/2 ML VIAL IV SCH ×2 (02:50→16:21)
--- NOTE | 2020-03-24 04:25 | NUR ---
Called to room by patient. Patient reported that feeling SOB. 02 sat 90% on 2L NC, RR 28. 02 increased to 4L NC, 02 sat 92 to 93%. Patient also reporting coughing. Will med PRN.
[2020-03-24] MEDS: ALPRAZOLAM 0.25 MG TAB PO PRN ×2 (04:29→20:24)
[2020-03-24] MEDS: DEXAMETHASONE SOD PHOS INJ 4 MG/ML VIAL IV SCH (08:08)
[2020-03-24] MEDS: FLUTICASONE PROPIONATE NASAL SPRAY NS SCH (08:10)
[2020-03-24] MEDS: AZITHROMYCIN 500MG/NS 250 ML 250 ML IV SCH (08:10)
[2020-03-24] MEDS: OLOPATADINE 5 ML BTL OP SCH ×2 (08:10→16:21)
[2020-03-24] MEDS: LORATADINE 10 MG TAB PO SCH (08:10)
[2020-03-24] MEDS: BENZONATATE 100 MG CAP PO SCH ×3 (08:11→20:24)
[2020-03-24] MEDS: ASCORBIC ACID 500 MG TAB PO SCH ×2 (08:11→16:21)
[2020-03-24] MEDS: NIFEDIPINE CR 30 MG TAB PO SCH ×2 (08:11→20:24)
[2020-03-24] MEDS: ZINC SULFATE 220 MG CAP PO SCH (08:11)
[2020-03-24] MEDS: ENOXAPARIN SOD INJ 40 MG/0.4 ML SYR SC SCH ×2 (08:11→20:24)
[2020-03-24] MEDS: CEFTRIAXONE SOD 1 GM/NS 50 ML 50 ML IV SCH (11:37)
--- NOTE | 2020-03-24 16:00 | NUR ---
Spoke with pt with SUJATHA Wilson regarding home health and DME. Pt agreeable. Signed choice letter for [facility] and [facility]. Copy of choice letter given to pt. Signed choice letter placed in front of chart.
--- NOTE | 2020-03-24 18:15 | Progress Note ---
DATE: SUBJECTIVE: Mr. Shay is doing better. He is still short of breath. No new complaint. PHYSICAL EXAMINATION: GENERAL: He is currently alert and oriented. VITAL SIGNS: Stable, afebrile. He is on 4 L. He is currently on Rocephin. Supplement with zinc and vitamin C. On Lovenox, Claritin, azithromycin, dexamethasone. IMPRESSION: COVID-19, respiratory failure too late for remdesivir. Continue supportive care. Continue as ordered. . We will follow. MD KATIE Mejia/MODL /[id number]
--- NOTE | 2020-03-24 18:36 | Progress Note ---
DATE: SUBJECTIVE: The patient still complaining of dyspnea and cough. He has some congestion. PHYSICAL EXAMINATION: VITAL SIGNS: The blood pressure is 139/73, saturation is 94% on 4 L, and the pulse is 79. HEENT: Shows no facial swelling or erythema. CARDIAC: Reveals regular rate and rhythm with a normal S1, S2. There are no murmurs or rubs heard. LUNGS: Auscultation of lungs reveals crackles at the bases. There is no wheezing. ABDOMEN: Soft, nontender. There is no rebound or guarding. EXTREMITIES: Shows no leg edema or calf tenderness. There is no cyanosis or clubbing. SKIN: Shows no rashes. NEUROLOGICAL: Shows no focal abnormalities. IMPRESSION: 1. Viral pneumonia and COVID-19 infection. 2. Remote history of cerebrovascular accident. 3. Hypertension. PLAN: 1. Continue supplemental oxygen. 2. Physical therapy. 3. Complete Decadron. 4. Complete Zithromax and Rocephin. 5. Monitor blood pressures. Bairon Barr MD [facility] /[id number]
--- NOTE | 2020-03-24 19:20 | NUR ---
IM- progress note O/N see below ROS: unreliable v/s revd PE tired appearing anicteric ns1s2 reduced BS;increased RR soft nt nd no e/t skin dry flat affect awake labs/meds revd A/P: 69yoM Multifocal PNA- IV abx; await coronavirus test results Obesity- screen for DM BMI 35.4- as above Hx stroke Prop: AC DIspo: 7 some chills/sweats; cont supportive care; 03-23 doing ok; cont care; f/u ID recs; PT eval 03-24 d/c planning; cont support; CM to set up HH/PT. check labs in am. Ezio Falk MD, PhD.
[2020-03-24] MEDS: ATORVASTATIN 10 MG TAB PO SCH (20:23)
[2020-03-25 00:31] VITALS: BP 144/53
[2020-03-25] MEDS: FAMOTIDINE 20 MG/2 ML VIAL IV SCH (02:28)
[2020-03-25 05:28] VITALS: BP 161/77
[2020-03-25 05:59] LABS: BASOPHILS % 0.2 % (0.0-1.0); EOSINOPHILS % 0.1 % (0.0-6.0); HEMATOCRIT 41.2 % (38.2-49.6); HEMOGLOBIN 14.1 g/dL (14.0-18.0); LYMPHOCYTES % 16.2 % (18.0-39.1); MEAN CORPUSCULAR HEMOGLOBIN 31.3 pg (28-32); MEAN CORPUSCULAR HGB CONC 34.2 g/dL (31-35); MEAN CORPUSCULAR VOLUME 91.6 fL (81-99); MONOCYTES % 8.1 % (4.4-11.3); NEUTROPHILS # (AUTO) 9.2 (2.1-6.9); NEUTROPHILS % 73.7 % (38.7-80.0); PLATELET COUNT 334 x10e3/uL (140-360); RED CELL DISTRIBUTION WIDTH 12.6 % (11.7-14.4)
[2020-03-25 06:17] LABS: ALANINE AMINOTRANSFERASE 88 IU/L (0-55); ALBUMIN 2.3 g/dL (3.5-5.0); ALBUMIN/GLOBULIN RATIO 0.6 (0.8-2.0); ALKALINE PHOSPHATASE 55 IU/L (40-150); ANION GAP 10.7 mmol/L (8-16); BLOOD UREA NITROGEN 18 mg/dL (7-26); BUN/CREATININE RATIO 24 (6-25); CALCIUM 8.5 mg/dL (8.4-10.2); CARBON DIOXIDE 26 mmol/L (22-29); CHLORIDE 108 mmol/L (98-107); CREATININE, SERUM 0.76 mg/dL (0.72-1.25); EST GLOMERULAR FILTRATION RATE > 60 ML/MIN (60-); GLUCOSE 104 mg/dL (74-118); POTASSIUM 3.7 mmol/L (3.5-5.1); SODIUM 141 mmol/L (136-145)
[2020-03-25] MEDS ORDERED: LORATADINE10 MG PO (06:38)
[2020-03-25] MEDS ORDERED: ZINC SULFATE220 M1 PO (06:38)
[2020-03-25] MEDS ORDERED: TESSALON PERLE100 MG PO (06:38)
[2020-03-25] MEDS ORDERED: ASCORBIC ACID500 MG PO (06:38)
[2020-03-25] MEDS ORDERED: NIFEDIPINE ER30 M1 PO (06:38)
[2020-03-25] MEDS ORDERED: ZITHROMAX500 MG PO (06:39)
[2020-03-25] MEDS ORDERED: PREDNISONE20 MG PO (06:39)
[2020-03-25] MEDS ORDERED: ONDANSETRON HCL 4 MG ORAL DISINTEGRATING TAB PO PRN (07:45)
[2020-03-25 08:00] VITALS: BP 151/73
[2020-03-25] MEDS: DEXAMETHASONE SOD PHOS INJ 4 MG/ML VIAL IV SCH (08:15)
[2020-03-25] MEDS: FLUTICASONE PROPIONATE NASAL SPRAY NS SCH (08:15)
[2020-03-25] MEDS: ASCORBIC ACID 500 MG TAB PO SCH (08:15)
[2020-03-25] MEDS: ZINC SULFATE 220 MG CAP PO SCH (08:15)
[2020-03-25] MEDS: NIFEDIPINE CR 30 MG TAB PO SCH (08:15)
[2020-03-25] MEDS: OLOPATADINE 5 ML BTL OP SCH (08:15)
[2020-03-25] MEDS: BENZONATATE 100 MG CAP PO SCH (08:15)
[2020-03-25] MEDS: LORATADINE 10 MG TAB PO SCH (08:15)
[2020-03-25] MEDS: ENOXAPARIN SOD INJ 40 MG/0.4 ML SYR SC SCH (08:15)
[2020-03-25] MEDS: AZITHROMYCIN 500MG/NS 250 ML 250 ML IV SCH (08:15)
--- NOTE | 2020-03-25 08:30 | NUR ---
Called and spoke to Yobani, client service coordinator at [facility] [phone]. Verified that they take pt's insurance and COVID + patients. Informed him of referral and dc for today. Referral faxed to [phone]
[2020-03-25 08:54] VITALS: BP 151/73
[2020-03-25] MEDS: CEFTRIAXONE SOD 1 GM/NS 50 ML 50 ML IV SCH (11:01)
--- NOTE | 2020-03-25 11:06 | NUR ---
Called and spoke with Yobani, field care coordinator at [facility]. States they have received referral and will accept pt. Home O2 eval was done. Pt was 84% on RA. Referral faxed to [facility] at [phone]. Amado with [facility] [place] was notified of referral. Portable oxygen was given to SUJATHA Dove to give to pt. She will instruct pt to call number on side of tank on way home from hospital for delivery of concentrator. Rolling walker was delivered. Green form signed and will turn into central supply.
[2020-03-25 11:10] VITALS: BP 151/69
--- NOTE | 2020-03-25 13:29 | NUR ---
PATIENT CURRENTLY RESTING IN BED WAITING FOR RIDE FROM HOSPITAL AFTER SIGNING DISCHARGE PAPERWORK. SUBHA STEVENS NOTIFIED THAT PATIENT DOES NOT HAVE A WAY FROM HOSPITAL. TAXI SERVICE SET UP WILL BE INITIATED BY SUBHA STEVENS.
--- NOTE | 2020-03-25 14:54 | Progress Note ---
DATE: Pulmonary Critical Care Progress Note SUBJECTIVE: The patient has less dyspnea. He still has some cough. He is not having fevers. PHYSICAL EXAMINATION: VITAL SIGNS: Blood pressure is 151/70 and saturation is 95% on 2 L. Pulse is 66. Respiratory rate is 18. HEENT: Shows no facial swelling or erythema. CARDIAC: Reveals regular rate and rhythm with normal S1 and S2. LUNGS: Auscultation of lungs reveals crackles at the bases. There is no wheezing. ABDOMEN: Soft and nontender. There is no rebound or guarding. EXTREMITIES: Shows no leg edema or calf tenderness. There is no cyanosis or clubbing. SKIN: Shows no rashes. NEUROLOGICAL: Shows no focal abnormalities. LABORATORY DATA: White blood cell count is 12.5 and the hemoglobin is 14.1. The platelet count is 334. The BUN to creatinine ratio is 18 to 0.76 and the albumin is 2.3. IMPRESSION: 1. Viral pneumonia COVID-19 infection. 2. Hypertension. 3. Remote history of cerebrovascular accident. PLAN: 1. Discharge home. 2. Home oxygen evaluation. 3. Complete oral Decadron at home. 4. Complete Zithromax. 5. Anticoagulation home with either the low dose Eliquis or aspirin. MD CEDRICK Dorman/REMIGIO /[id number]
--- OUTSIDE RECORDS SUMMARY | 2020-04-10 10:02 | XMS REPORT | Continuity of Care Document ---
Author Author [facility] t Organization [facility] Address 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 Attphys Unavailable TISHA MAGALLON Admphys Unavailable ISIDRA CISSE Admphys Unavailable Payers Payer Name Policy Type Policy Number Effective Date Expiration Date Temitope obrienaustin Nicole Medicare Complete [id number] 2017 00:00:00 [facility] NG OONxxxxxxxx2020-04/10/[id number] [place] [phone] xxxxxxxx 2020 00:00:00 2020 23:59:59 [facility] BC/BSBCBS HMOxxxxxxxxxxxx2015[place]ordelia [id number] [address] xxxxxxxxxxxx 2015 00:00:00 [facility] Problems Condition Name Condition Details Condition Category Status Onset Date Resolution Date Last Treatment Date Treating Clinician Comments Source Left sided numbness Left sided numbness Disease Active 2016-06-15 00:00 :00 [facility] BMI 34.0-34.9,adult BMI 34.0-34.9,adult Disease Active 2015-06-24 00:00 :00 [facility] Dietary counseling and surveillance Dietary counseling and surve illance Disease Active 2015-06-24 00:00:00 [facility] Numbness Numbness Disease Active 2014-08-17 00:00:00 [facility] Acute ischemic stroke Acute ischemic stroke Disease Active 201 12-19-30 00:00:00 [facility] Seasonal allergies Seasonal allergies Disease Active 2014-07-11 00:00:[address] [facility] Dizziness Dizziness Disease Active 2014-07-10 00:00:00 [facility] Headache(784.0) Headache(784.0) Disease Active 2014-07-10 00:00:00 [facility] Hypertension Hypertension Disease Active 2014-07-10 00:00:00 [facility] Hip pain, acute, right Hip pain, acute, right Problem HL7.CCDAR2 Active [facility] Diabetes Diabetes Problem HL7.CCDAR2 Active [facility] Bilateral sciatica Bilateral sciatica Problem HL7.CCDAR2 Active [facility] Influenza due to influenza virus, type A, human Influenza A Problem Active [facility] Pneumonia Pneumonia Problem Active [facility] Pneumonia due to severe acute respiratory syndrome coronavir us 2 (SARS-CoV-2) Problem Active [facility] Nausea and vomiting Problem Active [facility] Hypoxia Problem Active [facility] Hypertensive emergency Hypertensive emergency Disease Active [facility] Allergies, Adverse Reactions, Alerts Allergy Name Allergy Type Status Severity Reaction(s) Onset Date Inacti ve Date Treating Clinician Comments Source No Known Allergies DA Active U 2019-07-22 00:00:00 [facility] Family History Family Member Diagnosis Comments Start Date Stop Date Source Mother Family history of malignant neoplasm [facility] unknown Other [facility] Social History Social Habit Start Date Stop Date Quantity Comments Source Sex Assigned At [facility] Alcohol intake 2016-07-07 00:00:00 2016-07-07 00:00:00 Current drinker of alcohol (finding) [facility] Smoking Status Start Date Stop Date Source Never smoker [facility] Medications Ordered Medication Name Filled Medication Name Start Date Stop Da te Current Medication? Ordering Clinician Indication Dosage Frequency Signature (SIG) Comments Components Source Azithromycin (Zithromax) 500 Mg TABLET Azithromycin (Zithrom ax) 500 Mg TABLET 2020-03-25 06:39:00 Yes 500 Daily [facility] Prednisone Prednisone 2020-03-25 06:39:00 Yes 40 Candy ly [facility] Ascorbic Acid Ascorbic Acid 2020-03-25 06:38:00 Yes 500 Twice A Day [facility] Benzonatate (Tessalon Perle) 100 Mg CAPSULE Benzonatat e (Tessalon Perle) 100 Mg CAPSULE 2020-03-25 06:38:00 Yes 100 Three Times A Da y [facility] Loratadine Loratadine 2020-03-25 06:38:00 Yes 10 Candy ly [facility] Nifedipine (Nifedipine Er) 30 Mg TAB.ER.24 Nifedipine (Nifedipine Er) 30 Mg TAB.ER.24 2020-03-25 06:38:00 Yes 30 Every 12 Hours [facility] Zinc Sulfate Zinc Sulfate 2020-03-25 06:38:00 Yes 220 Daily [facility] losartan (COZAAR) 100 mg tablet 2020-03-20 13:42:49 Yes 100mg QD Take 100 mg by mouth daily. [facility] Azithromycin (Z-Cliff) 250 Mg TABLET Azithromycin (Z-Cliff) 250 Mg TABLET 2019-06-23 12:58:00 2020-03-25 00:00:00 No 1 As Directed [facility] metFORMIN (GLUCOPHAGE) 500 mg tablet 2016-08-02 00:00: 00 2020-03-20 00:00:00 No Prediabetes 500mg Take 1 tablet b y mouth daily (with dinner) for prediabetes. [facility] atorvastatin (LIPITOR) 80 mg tablet 2016-07-07 00:00:00 Yes Other hyperlipidemia 80mg Take 1 tablet by mouth at bedtime nightly. [facility] NIFEdipine (PROCARDIA XL) 90 mg extended release tablet 2016-07-07 00:00:00 Yes Essential hypertension 90mg QD Take 1 tablet by mouth da carol. [facility] loratadine (CLARITIN) 10 mg tablet 2016-07-07 00:00:00 Yes Seasonal allergic rhinitis due to pollen 10mg QD Take 1 t ablet by mouth daily Prn congestion. stateless. [facility] aspirin 325 mg tablet 2016-06-16 00:00:00 Yes Left sided numbness 325mg QD Take 1 tablet by mouth daily. [facility] polyvinyl alcohol (ARTIFICIAL TEARS) 1.4 % ophthalmic soluti on 2014-07-11 00:00:00 Yes Seasonal allergies 1[drp] I nstill 1 Drop in each eye as needed for dry eye(s). [facility] MetFORMIN HCl ER 500 MG Oral Tablet Extended Release 2 4 Hour MetFORMIN HCl ER 500 MG Oral Tablet Extended Release 24 Hour Yes R.N. [facility] AmLODIPine Besylate 5 MG Oral Tablet AmLODIPine Besylate 5 MG Oral Tablet Yes R.N. [facility] Escitalopram Oxalate 10 MG Oral Tablet Escitalopram Oxalate 10 M G Oral Tablet Yes R.N. [facility] Losartan Potassium 100 MG Oral Tablet Losartan Potassium 100 MG Ora l Tablet Yes R.N. [facility] TraZODone HCl TABS TraZODone HCl TABS Yes R.N. [facility] Aspirin 81 MG TABS Aspirin 81 MG TABS Yes R.N. [facility] Aspirin Aspirin Yes 1 Daily [facility] Atorvastatin Calcium Atorvastatin Calcium Yes 10 Today At 9:00PM [facility] Losartan/Hydrochlorothiazide (Losartan-Hctz 100-25 Mg Tab) 1 Each TABLET Losartan/Hydrochlorothiazide (Losartan-Hctz 100-25 Mg Tab) 1 Each TABLET Yes 1 Daily [facility] Amlodipine Besylate (Norvasc) 5 Mg TAB Amlodipine Besylate (Norv asc) 5 Mg TAB 2020-03-25 00:00:00 No 5 Daily [facility] Immunizations Ordered Immunization Name Filled Immunization Name Date Status Comments Source Influenza Vaccine 2015-06-24 00:00:[address] [facility] Vital Signs Vital Name Observation Time Observation Value Comments Source Body Temperature 2020-03-25 11:10:00 97.5 [degF] [facility] BMI (Body Mass Index) 2020-03-21 15:00:00 35.4 kg/m2 [facility] Weight 2020-03-21 10:20:00 233 [lb_av] [facility] BP Systolic 2018-04-02 10:58:00 132 mm[Hg] [facility] BP Diastolic 2018-04-02 10:58:00 76 mm[Hg] [facility] Height 2018-04-02 10:58:00 68 [in_us] [facility] Weight 2018-04-02 10:58:00 238 [lb_av] [facility] Body Mass Index Calculated 2018-04-02 10:58:00 36.19 kg/m2 [facility] Heart Rate 2018-04-02 10:58:00 80 /min [facility] Procedures Procedure Date / Time Performed Performing Clinician [facility] e Computed tomography of chest without contrast 2019-10-10 00:00:0 0 [facility] Computed tomography of chest with contrast 2019-06-26 00:00:00 [facility] X-ray of chest, two views 2019-06-23 00:00:00 MIMI HICKS [facility] [U] XRAY SPINE LUMBOSACRAL 2 OR 3 VWS [id number] 2018-04-02 00:00:00 [facility] [U] XRAY HIP UNILATERAL MIN 2 VWS RIGHT [id number] 2018-04-02 00:00:0 0 [facility] MRI Spine lumbar wo contrast [id number] 2018-04-02 00:00:00 [facility] MR Hip wo contrast [id number] 2018-04-02 00:00:00 [facility] History of Hernia Repair [facility] Plan of Care Planned Activity Planned Date Details Comments Source Future Scheduled Test 2020-06-11 00:00:00 IMM Influenza Seas onal Jun to November (>/= 19 yrs) [code = IMM Influenza Seasonal Jun to November (>/= 19 yrs)] [facility] Scheduled Test 2017 00:00:00 IMM Pneumococcal A ge 65 and Up [code = IMM Pneumococcal Age 65 and Up] [facility] Scheduled Test 2002 00:00:00 Screening for jayna arrington neoplasm of colon (procedure) [code = 271401171] [facility] Instructions COVID-19: 11/25/2019 [facility] Instructions Pneumonia - Viral [facility] Instructions Using Oxygen at Home [facility] Encounters Start Date/Time End Date/Time Encounter Type Admission Type Attendi [facility] Care Department Encounter ID Source 2019-10-10 08:14:00 2019-10-10 08:14:00 Registered Clinic 3 [place] [facility] [id number] [facility] 2019-06-26 11:23:00 2019-06-26 11:23:00 [id number] 2019-06-23 11:03:00 2019-06-23 13:14:00 Departed Emergency Room 1 MIMI HICKS [facility] [id number] [facility] I [facility] 2018-10-26 09:50:00 2018-10-26 09:50:00 Registered Clinic 3 [facility] [id number] [facility] 2018-04-02 09:00:00 2018-04-02 09:00:00 Appointment; JAYSON LLOYD M .D. BLUM, HENRY, M.D. [facility] Ortho and Spine [facility] [id number] [facility] Results Test Description Test Time Test Comments Results Result Comments Source Blood leukocytes automated count (number/volume) 2020-03-25 05:40:00 Test Item White Blood Count (test code = 6690-2) 12.50 4.8-10.8 [facility] count (number/volume)2020-03-25 05:40:00* Test Item Value Reference Range Interpretation Comments Red Blood Count (test code = 789-8) 4.50 4.3-5.7 [facility] hemoglobin measurement (moles/volume)2020-03-25 05:40:00* Test Item Value Reference Range Interpretation Comments Hemoglobin (test code = 76518-9) 14.1 14.0-18.0 [facility] hematocrit (volume fraction)2020-03-25 05:40:00* Test Item Value Reference Range Interpretation Comments Hematocrit (test code = 4544-3) 41.2 38.2-49.6 [facility] Center[facility] erythrocyte mean corpuscular vwtnwd7727-29-74 05:40:00* Test Item Value Reference Range Interpretation Comments Mean Corpuscular Volume (test code = 787-2) 91.6 81-99 [facility] Center[facility] erythrocyte mean corpuscular hemoglobin (mass per erythrocyte)2020-03-25 05:40:00* Test Item Value Reference Range Interpretation Comments Mean Corpuscular Hemoglobin (test code = 785-6) 31.3 28-32 [facility] CenterAutformerly [facility] erythrocyte mean corpuscular hemoglobin concentration measurement (mass/volume)2020-03-25 05:40:00* Test Item Value Reference Range Interpretation Comments Mean Corpuscular Hemoglobin Concent (test code = 786-4) 34.2 31-35 [facility] CenterRDW ZyjQu-Nqs7662-62-15 05:40:00* Test Item Value Reference Range Interpretation Comments Red Cell Distribution Width (test code = 54192-7) 12.6 11.7 -14.4 [facility] Center[facility] blood platelet count (count/volume)2020-03-25 05:40:00* Test Item Value Reference Range Interpretation Comments Platelet Count (test code = 777-3) 334 140-[address] [facility] [facility] neutrophil count as percentage of total mgdqbqshwg8069-68-32 05:40:00* Test Item Value Reference Range Interpretation Comments Neutrophils (%) (Auto) (test code = 08950-4) 73.7 38.7-80.0 [facility] CenterAutom[facility] blood lymphocyte count as percentage ot total skyvkrqmqo1477-80-61 05:40:00* Test Item Value Reference Range Interpretation Comments Lymphocytes (%) (Auto) (test code = 736-9) 16.2 18.0-39.1 [facility] CenterAutom[facility] blood monocyte count as percentage of total fbspvlhmat5338-16-75 05:40:00* Test Item Value Reference Range Interpretation Comments Monocytes (%) (Auto) (test code = 5905-5) 8.1 4.4-11.3 [facility] CenterAutom[facility] blood eosinophil count as percentage of total djlsaubdbp3571-65-98 05:40:00* Test Item Value Reference Range Interpretation Comments Eosinophils (%) (Auto) (test code = 713-8) 0.1 0.0-6.0 [facility] Center[facility] blood basophil count as percentage of total xwyvbrqnbe2766-96-06 05:40:00* Test Item Value Reference Range Interpretation Comments Basophils (%) (Auto) (test code = 706-2) 0.2 0.0-1.0 [facility] CenterFluoroscopic procedure less than one hour kfouolrm5436-70-98 05:40:00* Test Item Value Reference Range Interpretation Comments IM GRANULOCYTES % (test code = IM GRANULOCYTES %) 1.7 0.0- 1.0 [facility] Center[facility] blood neutrophil count 2020-03-25 05:40:00* Test Item Value Reference Range Interpretation Comments Neutrophils # (Auto) (test code = 751-8) 9.2 2.1-6.9 [facility] Center[facility] lymphocytes count (number/volume) 2020-03-25 05:40:00* Test Item Value Reference Range Interpretation Comments Lymphocytes # (Auto) (test code = 43672-9) 2.0 1.0-3.2 [facility] CenterBlw[facility] monocytes automated count (number/volume)2020-03-25 05:40:00* Test Item Value Reference Range Interpretation Comments Monocytes # (Auto) (test code = 742-7) 1.0 0.2-0.8 [facility] CenterAutomated blood eosinophil count 2020-03-25 05:40:00* Test Item Value Reference Range Interpretation Comments Eosinophils # (Auto) (test code = 711-2) 0.0 0.0-0.4 [facility] CenterAutomated blood basophil count (count/volume)2020-03-25 05:40:00* Test Item Value Reference Range Interpretation Comments Basophils # (Auto) (test code = 704-7) 0.0 0.0-0.1 [facility] CenterFluoroscopic procedure less than one hour dmyckckx0579-90-04 05:40:00* Test Item Value Reference Range Interpretation Comments Absolute Immature Granulocyte (auto (tez t code = Absolute Immature Granulocyte (auto) 0.21 0-0.1 [facility] sodium measurement (moles/volume)2020-03-25 05:40:00* Test Item Value Reference Range Interpretation Comments Sodium Level (test code = 2951-2) 141 136-145 [facility]lander[facility] or plasma potassium measurement (moles/volume)2020-03-25 05:40:00* Test Item Value Reference Range Interpretation Comments Potassium Level (test code = 2823-3) 3.7 3.5-5.1 [facility] or plasma chloride measurement (moles/volume)2020-03-25 05:40:00* Test Item Value Reference Range Interpretation Comments Chloride Level (test code = 2075-0) 108 98-107 [facility]lander[facility] or plasma carbon dioxide, total measurement (moles/volume)2020-03-25 05:40:00* Test Item Value Reference Range Interpretation Comments Carbon Dioxide Level (test code = 2028-9) 26 22-29 [facility] or plasma anion iwp5265-78-34 05:40:00* Test Item Value Reference Range Interpretation Comments Anion Gap (test code = 38289-5) 10.7 8-16 [facility] or plasma urea nitrogen measurement (mass/volume)2020-03-25 05:40:00* Test Item Value Reference Range Interpretation Comments Blood Urea Nitrogen (test code = 3094-0) 18 7-26 [facility] or plasma creatinine measurement (mass/volume)2020-03-25 05:40:00* Test Item Value Reference Range Interpretation Comments Creatinine (test code = 2160-0) 0.76 0.72-1.25 [facility] or plasma urea nitrogen/creatinine mass ftugt3098-30-27 05:40:00* Test Item Value Reference Range Interpretation Comments BUN/Creatinine Ratio (test code = 3097-3) 24 6-25 [facility] CenterEstimated glomerular filtration rate (GFR) tbmjxkpznqpxg8480-81-12 05:40:00* Test Item Value Reference Range Interpretation Comments Estimat Glomerular Filtration Rate (test code = 113321771) > 60 >60 Ranges were taken from the National Kidney Disease Education Program and the [facility] literature.Reference ranges:60 or greater: Kkqogu56-21 ( for 3 consecutive months): Chronic kidney disease 15 or less: Kidney failureUnited Memorial Medical CenterGlucose kxpxhwwgzpn0799-04-06 05:40:00* Test Item Value Reference Range Interpretation Comments Glucose Level (test code = EMQ3105) 104 74-118 [facility] or plasma calcium measurement (mass/volume)2020-03-25 05:40:00* Test Item Value Reference Range Interpretation Comments Calcium Level (test code = 18726-0) 8.5 8.4-10.2 [facility] or plasma total bilirubin measurement (mass/volume)2020-03-25 05:40:00* Test Item Value Reference Range Interpretation Comments Total Bilirubin (test code = 1975-2) 0.4 0.2-1.2 [facility] CenterFluoroscopic procedure less than one hour ekxeivzu7102-06-12 05:40:00* Test Item Value Reference Range Interpretation Comments Aspartate Amino Transf (AST/SGOT) (test code = Aspartate Amino Transf (AST/SGOT)) 57 5-34 [facility]landerum or plasma alanine aminotransferase measurement (enzymatic activity/volume)2020-03-25 05:40:00* Test Item Value Reference Range Interpretation Comments Alanine Aminotransferase (ALT/SGPT) (test code = 1742-6) 88 0-55 [facility]landerum or plasma protein measurement (mass/volume)2020-03-25 05:40:00* Test Item Value Reference Range Interpretation Comments Total Protein (test code = 2885-2) 6.4 6.5-8.1 [facility]lander[facility] or plasma albumin measurement (mass/volume)2020-03-25 05:40:00* Test Item Value Reference Range Interpretation Comments Albumin (test code = 1751-7) 2.3 3.5-5.0 [facility] CenterPlasma globulin measurement (mass/volume) 2020-03-25 05:40:00* Test Item Value Reference Range Interpretation Comments Globulin (test code = 97023-9) 4.1 2.3-3.5 [facility] or plasma albumin/globulin mass oqcte3521-38-28 05:40:00* Test Item Value Reference Range Interpretation Comments Albumin/Globulin Ratio (test code = 1759-0) 0.6 0.8-2.0 [facility]lander[facility] or plasma alkaline phosphatase measurement (enzymatic activity/volume)2020-03-25 05:40:00* Test Item Value Reference Range Interpretation Comments Alkaline Phosphatase (test code = 6768-6) 55 40-150 [facility]landerum or plasma creatine kinase measurement (enzymatic activity/volume)2020-03-22 12:58:00* Test Item Value Reference Range Interpretation Comments Creatine Kinase (test code = 2157-6) 49 30-200 [facility]landerum or plasma creatine kinase MB measurement (mass/volume)2020-03-22 12:58:00* Test Item Value Reference Range Interpretation Comments Creatine Kinase MB (test code = 28237-3) 1.00 0-5.0 [facility] CenterTroponin I measurement by highly sensitive enzyme tjjrdaxtkrd7427-14-10 12:58:00* Test Item Value Reference Range Interpretation Comments Troponin I (test code = 61190-5) 0.004 0-0.300 [facility] CenterCHEST SINGLE (PORTABLE)2020-03-22 08:33:00 [facility] [address] [address] Patient Name: DANUTA SHAY MR #: [id number] : 1950 Age/Sex: 69/M Req #: [id number] Adm Physician: TISHA MAGALLON MD Ordered by: LAKE BARR MD Report #: [id number] Location: [facility] Room/Bed: [place] [address] Procedure: [id number] DX/CHEST SINGLE (P ORTABLE) Exam Date: 03/22/20 Exam Time: 0755 REPORT STATUS: Signed Examination: Sing le AP view of the chest. COMPARISON: March 21, 2020 INDICATION: Viral p neumonia DISCUSSION: Lines/tubes: None. Lungs: Increased m ultifocal predominantly peripheral consolidations. Pleura: No pleural effu alessandra or pneumothorax. Heart and mediastinum: The heart and the mediastinum are unremarkable. Bones and soft tissues: No acute bony abnormalities. IMPRESSION: Increased predominant peripheral consolidations. Signed by: Dr. Daria Abdul M.D. on 03/22/2020 8:34 AM Dictated By: MARISELA ABDUL MD 3 Transcribed By: KULDIP on 03/22/20833 COPY TO: LAKE BARR MD Serum or plasma triglyceride measurement (mass/volume)2020-03-22 05:15:00* Test Item Value Reference Range Interpretation Comments Triglycerides Level (test code = 2571-8) 67 0-149 [facility] or plasma cholesterol measurement (mass/volume)2020-03-22 05:15:00* Test Item Value Reference Range Interpretation Comments Cholesterol Level (test code = 2093-3) 128 0-199 Less than 200 mg/dL Low Wyds112 - 239 mg/dL Borderline Twod018 m g/dl and greater High Risk [facility] or plasma cholesterol in LDL measurement (mass/volume) 2020-03-22 05:15:00* Test Item Value Reference Range Interpretation Comments LDL Cholesterol (test code = 2089-1) 91 60-130 [facility] or plasma cholesterol in HDL measurement (mass/volume)2020-03-22 05:15:00* Test Item Value Reference Range Interpretation Comments HDL Cholesterol (test code = 2085-9) 24 40-60 [facility] or plasma total cholesterol/cholesterol in HDL mass okkfr8469-82-42 05:15:00* Test Item Value Reference Range Interpretation Comments Cholesterol/HDL Ratio (test code = 9830-1) 5.3 3.9-4.7 [facility])2020-03-21 11:55:00 [facility] [address] [place] [address] Patient Name: DANUTA SHAY MR #: [id number] : 1950 Age/Sex: 69/M Req #: [id number] Adm Physician: Ordered by: TRICIA POWERS MD Report #: [id number] Location: ER Room/Bed: Procedure: [id number] DX/CHEST SINGLE (PORTABLE) Exam Date: 03/21/20 Exam Time: 1125 REPORT STATUS: Signed EXAMINATION: C HEST SINGLE (PORTABLE) INDICATION: COUGH, SOB COMPARISON: C T chest dated 10/10/2019. Chest x-ray dated 06/23/2019. FINDINGS: AP v iew TUBES and LINES: None. LUNGS/PLEURA: Lungs are well i nflated. There are new bilateral patchy opacities could represent multifocal pneumonia. There is new obscuration of bilateral costophrenic angles which cou ld be due to effusion and or atelectasis. HEART AND MEDIASTINUM: The car diomediastinal silhouette is unremarkable. BONES AND SOFT TISSUES: No acute osseous lesion. Soft tissues are unremarkable. UPPER ABDOMEN: No f ree air under the diaphragm. IMPRESSION: New bilateral patchy opa cities could represent multifocal pneumonia. There New obscuration of bila teral costophrenic angles which could be due to effusion and or atelectasis. Signed by: Jaleel Vasques MD on 03/21/2020 12:02 PM Dictated By: Destini VASQUES MD 1202 Transcribed By: KULDIP on 03/21/20 1202 COPY TO: TRICIA POWERS MD Blood ynceaky9115-30-04 10:40:00* Test Item Value Reference Range Interpretation Comments Blood Culture (test code = 85784346) NO GROWTH AFTER 72 HOURS [facility] CenterProthrombin time (PT) in platelet poor plasma by coagulation kmspx6034-85-12 10:30:00* Test Item Value Reference Range Interpretation Comments Prothrombin Time (test code = 5902-2) 13.5 11.9-14.5 [facility] in Platelet poor plasma by Coagulation [id number] 10:30:00* Test Item Value Reference Range Interpretation Comments Prothromb Time International Ratio (test code = 6301-6) 0.97 Oral Anticoagulant Therapy INR Values:1. Low Intensity Therapy 1.5 - 2.02 . Moderate Intensity Therapy 2.0 - 3.03. High Intensity Therapy(1) 2.5 - 3. 54. High Intensity Therapy(2) 3.0 - 4.05. Panic Value INR > 5.0 [facility] CenterActivated partial thromboplastin time (aPTT) in platelet poor plasma by coagulation [id number] 10:30:00* Test Item Value Reference Range Interpretation Comments Activated Partial Thromboplast Time (test code = 50747-9) 32.6 23.8-35.5 [facility] CenterU[facility] color bcbqjjizmpfla0079-36-90 10:30:00* Test Item Value Reference Range Interpretation Comments Urine Color (test code = 5778-6) ORANGE YELLOW [facility] CenterU[facility] rzewxam1718-07-02 10:30:00* Test Item Value Reference Range Interpretation Comments Urine Clarity (test code = 11257-3) SL CLOUDY CLEAR [facility] gravity of Urine by Test strip 2020-03-21 10:30:00* Test Item Value Reference Range Interpretation Comments Urine Specific [place] (test code = 5811-5) >=1.030 1.010-1.02 5 [facility] Center[facility] pH measurement by automated test sqrio5075-33-08 10:30:00* Test Item Value Reference Range Interpretation Comments Urine pH (test code = 35264-8) 6.5 5-7 [facility] Center[facility] leukocyte esterase detection by hixuaayn2785-20-47 10:30:00* Test Item Value Reference Range Interpretation Comments Urine Leukocyte Esterase (test code = 5799-2) NEGATIVE NEGATIVE [facility] CenterU[facility] nitrite vzrzusdvq8364-42-07 10:30:00* Test Item Value Reference Range Interpretation Comments Urine Nitrite (test code = 35714-7) NEGATIVE NEGATIVE [facility] CenterU[facility] protein measurement by test strip (mass/volume)2020-03-21 10:30:00* Test Item Value Reference Range Interpretation Comments Urine Protein (test code = 5804-0) >=300 NEGATIVE [facility] CenterU[facility] glucose tbpflxgxi3689-93-58 10:30:00* Test Item Value Reference Range Interpretation Comments Urine Glucose (UA) (test code = 2349-9) NEGATIVE NEGATIVE [facility] CenterUrine ketones detection by automated test wdlme3673-30-93 10:30:00* Test Item Value Reference Range Interpretation Comments Urine Ketones (test code = 12329-1) NEGATIVE NEGATIVE [facility] CenterUrine urobilinogen measurement by test strip (mass/volume)2020-03-21 10:30:00* Test Item Value Reference Range Interpretation Comments Urine Urobilinogen (test code = 50615-6) 2.0 0.2-1 [facility] Center[facility] total bilirubin measurement (mass/volume)2020-03-21 10:30:00* Test Item Value Reference Range Interpretation Comments Urine Bilirubin (test code = 1978-6) SMALL NEGATIVE [facility] CenterU[facility] erythrocytes agtakwijv3918-58-10 10:30:00* Test Item Value Reference Range Interpretation Comments Urine Blood (test code = 58700-5) TRACE NEGATIVE [facility] CenterAutomated urine sediment leukocyte count by microscopy (number/high power field)2020-03-21 10:30:00* Test Item Value Reference Range Interpretation Comments Urine WBC (test code = 5821-4) 6-10 0-5 [facility] CenterErythrocytes detection in urine sediment by light vttqfwkhch4416-28-58 10:30:00* Test Item Value Reference Range Interpretation Comments Urine RBC (test code = 82270-9) 6-10 0-5 [facility] CenterBacteria detection in urine sediment by light hxwzwvubfj9105-56-87 10:30:00* Test Item Value Reference Range Interpretation Comments Urine Bacteria (test code = 11431-7) RARE NONE [facility] CenterEpithelial cells detection in urine sediment by light cpjvbntgbj8818-96-57 10:30:00* Test Item Value Reference Range Interpretation Comments Urine Epithelial Cells (test code = 34079-4) FEW NONE [facility] CenterFluoroscopic procedure less than one hour pvinetpl2049-98-91 10:30:00* Test Item Value Reference Range Interpretation Comments Hemoglobin A1c Percent (test code = Hemoglobin A1c Percent) 6.1 4.0-7.0 [facility] CenterFluoroscopic procedure less than one hour iuqqnalw5657-68-16 10:30:00* Test Item Value Reference Range Interpretation Comments Lactic Acid Level (test code = Lactic Acid Level) 1.3 0.5- 2.0 [facility] CenterBNP Aex-oRql0562-93-11 10:30:00* Test Item Value Reference Range Interpretation Comments B-Type Natriuretic Peptide (test code = 16963-5) 25.4 0-100 [facility] CenterFluoroscopic procedure less than one hour saihihmh3250-10-29 10:30:00* Test Item Value Reference Range Interpretation Comments Coronavirus (PCR) (test code = Coronavirus (PCR)) DETECTED NOTD ETECTED SARS-COV2/RT-PCRResults are for the detection of SARS-COV-2 RNA. The SARS-COV-2 RNA is generally detectable in nasopharyngeal swab specimens during the acute ph ase of infection. Positive results are indicitive of active infection with SARS- COV-2; clinical correlation with patient history and other diagnostic informatio n is necessary to determine patient infection status. Positive results do not ru le out bacterial infection or co-infection with other viruses. The agent detecte d may not be the definite cause of the disease.The limit of detection for this a ssay is 250 copies/mLThe SARS-CoV-2 test is a rapid, real-time RT-PCR test inten ded for the qualitative detection of nucleic acid from SARS-CoV-2 in nasopharyng eal swab specimen collected from individuals suspected of COVID-19 by their [facility] provider. This test has not been Food and Drug Administration (FDA) clear ed or approved and has been authorized by FDA under an Emergency Use Authorizati on (EUA). This EUA will be effective until the declaration that circumstances ex ist justifying the authorization of the emergency use of in vitro diagnostic tez t for detection and or diagnosis of COVID-19 is terminated under section 564(b) of the Act, or the the EUA is revoked under 564(g) of the ACT.Testing performed by [address] [address]AOYUnited [facility] Medical CenterCT CHEST [id number] 10:09:00 [facility] [address] [place] [address] Patient Name: DANUTA SHAY MR #: [id number] : 1950 Age/Sex: 68/M Req #: [id number] Adm Physician: Ordered by: LAKE BARR MD Report #: [id number] Location: [place] Room/Bed: Procedure: [id number] CT/CT C HEST WO Exam Date: 10/10/19 Exam Time: 939 REPORT STATUS: Signed EXAM: CT Chest WIT HOUT contrast INDICATION: [id number] PUL INFILTRATE COMP ARISON: CT chest 06/26/2019 TECHNIQUE: Chest was scanned utilizing a mult Lyxiatector helical scanner from the lung apex through the level of the adrenal glands without administration of IV contrast. Absence of intravenous contrast decreases sensitivity for detection of lymphadenopathy and vascular pathology. Coronal and sagittal reformations were obtained. Routine protocol was perform ed. IV CONTRAST: None COMPLICATIONS: None RADIATION DOSE: Total DLP: 558 mGy*cm Estimated effective dose: (DLP x 0.014 x size factor) mSv CTDIvol has been reviewed. It is below the limits set by the Radiation Protocol Committee (RPC). Dose modulation, iterative reconst ruction, and/or weight based adjustment of the mA/kV was utilized to reduce th e radiation dose to as low as reasonably achievable. FINDINGS : LINES/ TUBES: None. LUNGS AND AIRWAYS: The previously seen multifoca l right upper lobe and left lower lobe airspace consolidations are no longer i dentified. No new pulmonary mass, nodule, or consolidation. Unchanged 4 mm lef t lower lobe nonspecific nodule (image 72). A few tiny left upper lobe nodules are also unchanged. PLEURA: The pleural spaces are clear. HEART AND M EDIASTINUM: The thyroid gland is normal. No mediastinal, hilar or axillary ly mphadenopathy. The heart is normal in size. There is no pericardial effusion. Unchanged atherosclerotic calcifications of the thoracic aorta and coronary arteries. UPPER ABDOMEN: Unremarkable. BONES: The visualized bony thor ax is within normal limits. SOFT TISSUES: Unremarkable. IMPRESSION: Interval resolution of the previously seen multifocal lung airspace disease consistent with resolving pneumonia. No acute thoracic abnormality. Signed by: Casimiro Kim MD on 10/10/2019 10:13 AM Dictated By: CASIMIRO KIM MD Transcribed B y: KULDIP on 10/10/193 COPY TO: LAKE BARR MD,ROXI 2019-08-01 07:38:00 RUN DATE: 08/01/19 [facility] - [facility] PAGE 1 RUN TIME: 737 Specimen Inqui ry RUN USER: INTERFACE PATIENT: DANUTA SHAY ACCT #: [id number] LOC: [facility] U #: [id number] AGE/SX: 68/M ROOM: RE07/29/19[facility] DR: Lake Barr MD : 54 BED: DIS: STATUS: [facility] TLOC: SPEC #: [id number] RECD: 07/29/19 STATUS: DEVENDRA LLOYD #: [id number] RICH: 07/29/[address] [facility] [address]: Lake Barr MD ENTERED: 07/29/19 SP TYPE: FL OTHER OTHR DR: Isidra Carlos MDORDERED: GROSS COPIES TO: Isidra Cerda MD [address] [place] [address] Lake Barr MD [address] [place] [address] PROCEDURES: Constanza HARPER (07/30/19-145) TISSUES: 1. RIGHT UPPER LOBE OF LUNG, NOS - BRUSH ING 4 SLIDES 2. RIGHT UPPER LOBE OF LUNG, NOS - BAL 10 ML PINK C LINICAL HISTORY COLLECTION DATE: 07/29/19 RUL INFILTRATES FINAL DIAGNOSIS Lung, right upper lobe brushing: ACUTE INFLAMMATION NEGATIVE FOR MALIGNANCY Lung, right upper lobe, bronchoalveolar lavage : ACUTE INFLAMMATION NEGATIVE FOR MALIGNANCY FA/gen Montano [id number], [id number] CONTINUED ON NEXT PAGE RUN DATE: 08/01/19 [facility] - Lab PAGE 2 RUN TIME: 07 Spec imen Inquiry RUN USER: INTERFACE SPEC #: [id number] PATIENT: DANUTA MORGAN #[id number] (Continued) MA CROSCOPIC The first specimen is received and, labeled with the patient's name , and identified as "right upper lobe brushing ", and consists of four smear slides for processing and cytologic evaluation. One cell block is prepared ( two smears and one cytospin). The second specimen is received in formalin, labeled with the patient's name, identified as "broncho alveolar lavage", and consists of 10 mL of pink fluid, for processing and cytologic evaluation. GROSS PERFORMED AT [facility] [address] [place] [address] (p)[phone] MICROSCOPIC Microscopic evaluation of smears of the right upper lobe bru shing shows numerous columnar ciliated respiratory cells, occasional macrophag es, neutrophils and bacterial colonies. The cell block shows bacterial coloni es and respiratory ciliated cells. No malignant cells are seen. Cytol ogic evaluation of smears and cytospin of the right upper lobe bronchoalveolar lavage shows squamous cells, nonciliated cells, alveolar macrophages, neutrop hils and bacteria. No malignant cells are seen. All of the stains, inclu ding any controls performed, stain appropriately. MICROSCOPIC PERFORMED AT [facility] [address] [place] [address] (p)[phone] PERFORMING SITE Diagnosis perf ormed at: [facility] AYDE joya [address] [place] [address] [phone] CONTINUED ON NEXT PAGE -RUN DATE: 08/01/19 [facility] - Lab PAGE 3 RUN TIME: 737 Specimen Inquiry RUN USER: INTERFACE SPEC #: [id number] PATIENT: DANUTA SHAY #[id number] (Continued) Signed SIGNATURE ON Isabelle Manuel Galindo MD 08/01/19 0738 END OF REPORT BRONCH LAVAGE FLD CELL CT/[id number] 10:53:00* Test Item Value Reference Range Interpretation Comments FLUID SOURCE (test code = SOURCEFL) BRONCHIAL LAVAGE FLUID COLOR (test code = COLFL) PINKISH COLORLESS FLUID APPEARANCE (test code = APPFL) CLOUDY FLUID WBC (test code = WBCFL) 33 per mm3 0-150 N QC performed - Cell count on both sides of chamber agreeswithin 20% ? 30 FLUID RBC (test code = RBCFL) 2850 per mm3 0-50 H REVIEWED BY (test code = REVIEW) PATHOLOGIST Reviewed by MANUEL Irwin:RARE SQUAMOUS CELL ANDBLOOD.NO ALVEOLAR MACROPHAGES (LIMITED FOR EVALUATION). BRONCH LAVAGE FLD CELL CT/[id number] 10:33:00* Test Item Value Reference Range Interpretation Comments FLUID SOURCE (test code = SOURCEFL) BRONCHIAL LAVAGE FLUID COLOR (test code = COLFL) PINKISH COLORLESS FLUID APPEARANCE (test code = APPFL) CLOUDY FLUID WBC (test code = WBCFL) 33 per mm3 0-150 N QC performed - Cell count on both sides of chamber agreeswithin 20% ? 30 FLUID RBC (test code = RBCFL) 2850 per mm3 0-50 H TOTAL CELLS COUNTED ON DIFF (test code = TOTCELLFL) cells REVIEWED BY (test code = REVIEW) PATHOLOGIST Reviewed by MANUEL Irwin:RARE SQUAMOUS CELL ANDBLOOD.NO ALVEOLAR MACROPHAGES (LIMITED FOR EVALUATION). BRONCH LAVAGE FLD CELL CT/[id number] 11:47:00* Test Item Value Reference Range Interpretation Comments FLUID SOURCE (test code = SOURCEFL) BRONCHIAL LAVAGE FLUID COLOR (test code = COLFL) PINKISH COLORLESS FLUID APPEARANCE (test code = APPFL) CLOUDY FLUID WBC (test code = WBCFL) 33 per mm3 0-150 N QC performed - Cell count on both sides of chamber agreeswithin 20% ? 30 FLUID RBC (test code = RBCFL) 2850 per mm3 0-50 H TOTAL CELLS COUNTED ON DIFF (test code = TOTCELLFL) cells REVIEWED BY (test code = REVIEW) PATHOLOGIST BASIC METABOLIC [id number] 16:18:00* Test Item Value Reference Range Interpretation Comments SODIUM (test code = NA) 140 mmol/L 136-145 N POTASSIUM (test code = K) 3.7 mmol/L 3.5-5.1 N CHLORIDE (test code = CL) 105.0 mmol/L 98-107 N CARBON DIOXIDE (test code = CO2) 27.0 mmol/L 21-32 N ANION GAP (test code = GAP) 11.7 10-20 N GLUCOSE (test code = GLU) 148 mg/dL 74-106 H BLOOD UREA NITROGEN (test code = BUN) 17 mg/dL 7-18 N GLOMERULAR FILTRATION RATE (test code = GFR) > 60 mL/min >=60 Estimated GFR by using Modified MDRD formula.Chronic kidney disease is defined as either kidney damageor GFR <60 mL/min/1.73 m2 for >3 months. CREATININE (test code = CREAT) 1.10 mg/dL 0.7-1.3 N BUN/CREATININE RATIO (test code = BUN/CREA) 15.0 10-20 N CALCIUM (test code = CA) 9.1 mg/dL 8.5-10.1 N BASIC METABOLIC [id number] 16:14:00* Test Item Value Reference Range Interpretation Comments SODIUM (test code = NA) 140 mmol/L 136-145 N POTASSIUM (test code = K) 3.7 mmol/L 3.5-5.1 N CHLORIDE (test code = CL) 105.0 mmol/L 98-107 N CARBON DIOXIDE (test code = CO2) mmol/L 21-32 ANION GAP (test code = GAP) 10-20 GLUCOSE (test code = GLU) mg/dL 74-106 BLOOD UREA NITROGEN (test code = BUN) mg/dL 7-18 GLOMERULAR FILTRATION RATE (test code = GFR) mL/min >=60 CREATININE (test code = CREAT) mg/dL 0.7-1.3 BUN/CREATININE RATIO (test code = BUN/CREA) 10-20 CALCIUM (test code = CA) mg/dL 8.5-10.1 CBC W/AUTO [id number] 16:05:00* Test Item Value Reference Range Interpretation Comments WHITE BLOOD CELL (test code = WBC) 7.9 K/mm3 4.5-12.5 N RED BLOOD CELL (test code = RBC) 4.42 mill/mm3 4.0-5.8 N HEMOGLOBIN (test code = HGB) 13.5 gram/dL 13.0-17.5 N HEMATOCRIT (test code = HCT) 41.5 % 42.0-52.0 L MEAN CELL VOLUME (test code = MCV) 93.9 fL 80-98 N MEAN CELL HGB (test code = MCH) 30.5 picogram 27.0-33.0 N MEAN CELL HGB CONCETRATION (test code = MCHC) 32.5 gram/dL 33.0-36. 0 L RED CELL DISTRIBUTION WIDTH (test code = RDW) 12.6 % 11.6-16. 2 N RED CELL DISTRIBUTION WIDTH SD (test code = RDW-SD) 43.7 fL 37 .0-51.0 N PLATELET COUNT (test code = PLT) 194 K/mm3 150-450 N MEAN PLATELET VOLUME (test code = MPV) 9.4 fL 6.7-11.0 N NEUTROPHIL % (test code = NT%) 54.0 % 39.0-69.0 N IMMATURE GRANULOCYTE % (test code = IG%) 0.6 % 0.0-5.0 N LYMPHOCYTE % (test code = LY%) 32.2 % 25.0-55.0 N MONOCYTE % (test code = MO%) 9.5 % 0.0-10.0 N EOSINOPHIL % (test code = EO%) 2.9 % 0.0-5.0 N BASOPHIL % (test code = BA%) 0.8 % 0.0-1.0 N NUCLEATED RBC % (test code = NRBC%) 0.0 % 0-0 N NEUTROPHIL # (test code = NT#) 4.27 K/mm3 1.8-7.7 N IMMATURE GRANULOCYTE # (test code = IG#) 0.05 x10 3/uL 0-0.03 H LYMPHOCYTE # (test code = LY#) 2.55 K/mm3 1.0-5.0 N MONOCYTE # (test code = MO#) 0.75 K/mm3 0-0.8 N EOSINOPHIL # (test code = EO#) 0.23 K/mm3 0.0-0.5 N BASOPHIL # (test code = BA#) 0.06 K/mm3 0.0-0.2 N NUCLEATED RBC # (test code = NRBC#) 0.00 K/mm3 0.0-0.1 N CBC W/AUTO [id number] 16:04:00* Test Item Value Reference Range Interpretation Comments WHITE BLOOD CELL (test code = WBC) K/mm3 4.5-12.5 RED BLOOD CELL (test code = RBC) mill/mm3 4.0-5.8 HEMOGLOBIN (test code = HGB) 13.5 gram/dL 13.0-17.5 N HEMATOCRIT (test code = HCT) % 42.0-52.0 MEAN CELL VOLUME (test code = MCV) fL 80-98 MEAN CELL HGB (test code = MCH) picogram 27.0-33.0 MEAN CELL HGB CONCETRATION (test code = MCHC) gram/dL 33.0-36. 0 RED CELL DISTRIBUTION WIDTH (test code = RDW) % 11.6-16. 2 RED CELL DISTRIBUTION WIDTH SD (test code = RDW-SD) fL 37 .0-51.0 PLATELET COUNT (test code = PLT) K/mm3 150-450 MEAN PLATELET VOLUME (test code = MPV) fL 6.7-11.0 NEUTROPHIL % (test code = NT%) % 39.0-69.0 IMMATURE GRANULOCYTE % (test code = IG%) % 0.0-5.0 LYMPHOCYTE % (test code = LY%) % 25.0-55.0 MONOCYTE % (test code = MO%) % 0.0-10.0 EOSINOPHIL % (test code = EO%) % 0.0-5.0 BASOPHIL % (test code = BA%) % 0.0-1.0 NEUTROPHIL # (test code = NT#) K/mm3 1.8-7.7 LYMPHOCYTE # (test code = LY#) K/mm3 1.0-5.0 MONOCYTE # (test code = MO#) K/mm3 0-0.8 EOSINOPHIL # (test code = EO#) K/mm3 0.0-0.5 BASOPHIL # (test code = BA#) K/mm3 0.0-0.2 CT CHEST [id number] 12:39:00 [place] [address] Patient Name: DANUTA SHAY MR #: [id number] : 1950 Age/Sex: 68/M Req #: [id number] Adm Physician: Ordered by: ISIDRA CISSE MD Report #: [id number] Location: NE Room/Bed: Procedure: [id number] CT/ CT CHEST W Exam Date: 06/26/19 Exam Time: 1220 REPORT STATUS: Signed EXAM: CT Chest WITH intravenous contrast 06/26/2019 11:29 AM INDICATION: Cough, chest pain, lung mass COMPARISON: Chest CT of 09/19/2017, chest radiograph of 06/23/2019 T ECHNIQUE: Chest was scanned utilizing a multidetector helical scanner from the lung apex through the level of the adrenal glands after administration of IV contrast. Coronal and sagittal reformations were obtained. Routine protocol wa s performed. IV CONTRAST: 100mL Isovue 370 RADIATION DOSE: Total DLP: 4 85.9 mGy*cm. Dose modulation, iterative reconstruction, and/or weight based ad justment of the mA/kV was utilized to reduce the radiation dose to as low as r easonably achievable. COMPLICATIONS: None FINDINGS: LINES/ TUBES: N one. LUNGS AND AIRWAYS: The central airways are patent. There is a 1.5 cm nodule in the right upper lobe which corresponds with the nodular opacity seen on the chest radiograph of 06/23/2019. There are adjacent additional smaller nodular opacities as well as tree-in-bud opacities. Additional areas of ill-de fined nodular opacities at the dependent left lower lobe. PLEURA: No pleural effusion or pneumothorax. HEART AND MEDIASTINUM: The thyroid gland is normal. No supraclavicular, mediastinal, or hilar lymphadenopathy. The hea rt is not enlarged. No pericardial effusion. Scattered atherosclerotic calcifi cations of the coronary arteries, aorta, and great vessels. This exam is not tailored for evaluation of pulmonary embolism, however there are no filling de fects to the level of the segmental pulmonary arteries to suggest pulmonary em bolism. UPPER ABDOMEN: Limited images of the upper abdomen demonstrate hepa tic steatosis and no focal abnormality of the partially visualized liver, ga llbladder, spleen or adrenals. The pancreas and kidneys are not visualized. BONES: No acute osseous injury. No suspicious lytic or blastic lesions. SO FT TISSUES: Unremarkable. IMPRESSION: 1.5 cm focal nodular opacity in th e right upper lobe along with adjacent smaller nodular opacities and tree-in-b ud opacities. Additional small ill-defined nodular opacities at the dependent left lower lobe. Given distribution and morphology, findings more likely repre sent sequela of infection/aspiration then multifocal malignancy. However, foll ow-up chest CT in 3-6 months then at 18-24 months is recommended to assess for stability/clearance and to exclude a neoplastic process. Hepatic steatos is. Atherosclerotic calcifications, including of the coronary arteries. Signed by: Autumn Schroeder MD on 06/26/2019 2:00 PM Dictated By: AUTUMN SCHROEDER MD 1400 Transcribed By: Hermes JOINER on 06/26/19 1400 COPY TO: ISIDRA CISSE MD CHEST 2 [id number] 12:21:00 [place] [address] Patient Name: DANUTA SHAY MR #: [id number] : 1950 Age/Sex: 68/M Req #: [id number] Adm Physician: Ordered by: MIMI HICKS MD Report #: [id number] Location: ER Room/Bed: Procedure: [id number] DX/ CHEST 2 VIEWS Exam Date: Exam Time: REPORT STATUS: Signed EXAMINATION: CHEST 2 EWS INDICATION: Cough. COMPARISON: None FINDINGS: TU BES and LINES: None. LUNGS: Lungs are well inflated. Mild patchy bibasila r opacities, likely atelectasis. No evidence of lobar pneumonia. A faint nodul ar opacity projects over the right upper lung, and appears slightly more consp icuous compared to radiograph on 09/18/2017. PLEURA: No pleural effusion o r pneumothorax. HEART AND MEDIASTINUM: The cardiomediastinal silhouette i s unremarkable. BONES AND SOFT TISSUES: No acute osseous abnormality. UPPER ABDOMEN: No free air under the diaphragm. IMPRESSION: Mild patchy bibasilar opacities, more likely atelectasis than pneumonia. Faint nodular opacity projects over the right upper lung. This appears slightly more conspicuous compared to chest radiograph on 09/18/2017 per my review. The chest CT on 09/19/2017 demonstrated no lung nodule in this location. This could repr esent overlying bronchial/vascular structures, although a pulmonary nodule is not excluded. Suggest follow-up chest radiograph in 3 months. Signed by: Dr Amena Caballero MD on 06/23/2019 12:27 PM Dictated By: JOSE CABALLERO MD Elect ronically Signed By: JOSE CABALLERO MD on 06/23/191226 Transcribed By: KULDIP on 06/23/191226 COPY TO: MIMI HICKS MD US ABDOMEN COMPLETE 2018-10-26 12:01:00 [place] [address] Patient Name: DANUTA SHAY MR #: [id number] : 1950 Age/Sex: 67/M Req #: [id number] Adm Physician: Ordered by: ISIDRA CISSE MD Report #: [id number] Location: US Room/Bed: Procedure: [id number] US/ US ABDOMEN COMPLETE Exam Date: 10/26/18 Exam Time: 1 035 REPORT STATUS: Signed EXAM: US ABDOMEN COMPLETE DATE: 10/26/2018 9:56 AM INDICATION: Left sided abdominal pain. COMPARISON: None TECHNIQUE: Transverse and longitud inal israel scale and color doppler sonographic images of the abdomen was obtain ed. FINDINGS: There is no evidence of fluid or masses seen in the area of clinical concern in the left abdomen. LIVER Measures 15.0 cm in the right midclavicular line. Increased echogenicity of the liver with normal contour, no masses. SPLEEN Measures 10.2 cm in maximum diameter. Normal echogenicity, no masses. GALLBLADDER No gallbladder wall thickening, di stension, stone, or pericholecystic fluid. Negative reported sonographic Lucia y's sign. BILE DUCTS No intra nor extra-hepatic biliary dilation. Commo n bile duct measures 0.3 cm PANCREAS: Limited evaluation due to overlying b owel gas. RIGHT KIDNEY: Measures 12.2 x 5.4 x 5.5 cm Echogenicity: Katie l Collecting System: No hydronephrosis Stones: None Cyst/Mass: None LEFT KIDNEY: Measures 11.2 x 5.1 x 4.4 cm Echogenicity: Normal Collecting S ystem: No hydronephrosis Stones: None Cyst/Mass: None VESSELS: Aort a: Limited evaluation due to overlying bowel gas. Inferior Vena Cava: Visualiz ed portions are normal Main Portal Vein: 1.2 cm, normal size with hepatopetal flow. FREE FLUID: None IMPRESSION: No sonographic abnormality in the patient's area of pain in the left abdomen. Hepatic steatosis. Signed by: Dr. Jose Caballero MD on 10/26/2018 12:07 PM Dictated By: JOSE CABALLERO MD 120 Transcribed By: WES MONROE on 10/26/18 120 COPY TO: ISIDRA CISSE MD MR Hip wo contrast [id number] 10:41:00* Test Item Value Reference Range Interpretation Comments Hip wo contrast MR (test code = Hip wo contrast MR) Ca ncel Reason: Condition Doesn't Permit [facility][U] XRAY SPINE LUMBOSACRAL 2 OR 3 VWS [id number] 2018-04-02 10:24:00Images acquired, not reported on this accession number. [facility][U] XRAY HIP UNILATERAL MIN 2 VWS RIGHT [id number] 2018-04-02 10:19:00Images acquired, not reported on this accession number. [place] [id number] Patient Name: DANUTA SHAY MR #: [id number] : 1950 Age/Sex: 67/M Req #: [id number] Adm Physician: Ordered by: ISIDRA CISSE MD Report #: [id number] Location: [facility] Room/Bed: Procedure: [id number] DX/HEEL LT Exam Date: Exam Time: 1345 REPORT STATUS: Signed PRO CEDURE: X-RAY LEFT HEEL COMPARISON: None. INDICATIONS: LEFT HE EL PAIN FINDINGS: See conclusion. CONCLUSION: No acute fra cture or dislocation of the left calcaneus. Dictated by: Coco khan M.D. on 01/17/2018 at 15:33 Electronically approved by: Coco Beasley i, M.D. on 01/17/2018 at 15:33 Dictated By: COCO Benson lectronically Signed By: COCO WHARTON MD on 01/17/18 153 Transcribed By: [facility] on 01/17/18 153 COPY TO: ISIDRA CISSE MD CHEST 2 VIEWS [place] [address] Patient Name: DANUTA SHAY MR #: [id number] : Age/Sex: 66/M Req #: [id number] Adm Physician: ISIDRA ANAYA MD Ordered by: ISIDRA CISSE MD Report #: [id number] Loca tion: [facility] Room/Bed: [facility] 180-1 Procedure: [id number] DX/CHEST 2 VIEWS Exam Date: 09/21/17 Exam Time: 1609 REPORT STATUS: Signed PROCEDURE: X-RAY CHEST, TWO VIEWS COMPARISON: Chest x-ray 09/18/17. INDICATIONS: FLU, COUGH FINDINGS: LUNGS: Bi basilar atelectasis has improved. There is residual atelectasis or scar in th e lingula. The diaphragms remain flattened suggestive of pulmonary hyperinfla tion. There is no evidence of mass or infiltrate. The pulmonary vascular homero ings are normal. PLEURA: No effusions or pneumothorax. HEART T MEDIASTINUM: The heart is within normal size-limits. BONES T SOFT T ISSUES: No new findings. CONCLUSION: Improved bibasilar atelectas is. No new cardiopulmonary process. Dictated by: Paige Armstrong 09/21/2017 at 16:49 Electronically approved by: Paige Armstrong 09/21/2017 at 16:49 Dictated By: CARINA MUSTAFA MD Electr onically Signed By: CARINA MUSTAFA MD on 09/21/171648 Transcribed By: LORETO on 09/21/171648 COPY TO: ISIDRA CISSE MD CT CHEST [place] [address] Patient Name: DANUTA SHAY MR #: [id number] : Age/Sex: 66/M Req #: [id number] Adm Physician: ISIDRA ANAYA MD Ordered by: TRICIA POWERS MD Report #: [id number] Locati on: [facility] Room/Bed: [facility] 180-1 Procedure: [id number] CT /CT CHEST WO Exam Date: 09/19/17 Exam Time: 0635 REPORT STATUS: Signed EXAM: CT CHEST WO DATE: 09/19/2017 6:00 AM Time sta mp on exam: 0628 hours INDICATION: Flu, shortness of breath COMPARISON: AP view of the chest September 18, 2017 TECHNIQUE: Multidetector CT scanning of the chest was performed. Coronal and sagittal multiplanar reformations were obta ined. Routine protocol performed. IV Contrast: None CTDIvol has been reviewe d. It is below the limits set by the Radiation Protocol Committee (RPC). FINDINGS: LUNGS AND AIRWAYS: The trachea and major bronchi are unremarkable. No consolidations or edema. Mild bibasilar bronchial thickening. Bibasilar li near atelectasis/scarring. PLEURA: No effusions or pneumothorax. HEART , MEDIASTINUM, VESSELS: Scattered coronary artery calcifications and calcifica tion of the thoracic aorta, otherwise unremarkable. UPPER ABDOMEN: Unremark able MUSCULOSKELETAL: No acute findings. IMPRESSION: Mild bibasilar bronchial thickening. No consolidations. Signed by: Dr. Sofía velasquez M.D. on 09/19/2017 7:03 AM Dictated By: SOFÍA LYNCH MD [facility] Signed By: SOFÍA LYNCH MD on 09/19/17702 Transcribed By: KULDIP on 05/29 COPY TO: TRICIA POWERS MD CHEST [facility] (PORTABLE) [place] [address] Patient Name: DANUTA SHAY MR #: [id number] : Age/Sex: 66/M Req #: [id number] Adm Physician: Ordered by: ELIZABETH VILLAGOMEZ [employer] Report #: [id number] Location: ER Room/Bed : Procedure: DX/CHEST SINGLE (PORTABLE) Ex am Date: 09/18/17 Exam Time: 1845 REPORT STATUS : Signed Examination: Single AP view of the chest. COMPARISON: None. INDICATION: Chest pain IMPRESSION: 1. Lines and Tubes: None 2. Lungs are mildly hypoinflated, with patchy opacity in the left retrocardiac region. This likely represents atelectasis given the low lung volumes, however , developing pneumonia is a consideration in the appropriate clinical setting. 3. Cardiomediastinal silhouette is normal. Pulmonary vasculature is normal . 4. No acute bony abnormalities. Signed by: Dr. Andrea Fernandez M.D. on 09/18/2017 7:26 PM Dictated By: ANDREA FERNANDEZ MD Electronically Jolly d By: ANDREA FERNANDEZ MD on 09/18/171925 Transcribed By: KULDIP on 09/18/17 COPY TO: ELIZABETH VILLAGOMEZ [employer] INSPECTOR CHEST 2 VIEWS [place] [address] Patient Name: DANUTA SHAY MR #: [id number] : 1950 Age/Sex: 66/M Req #: [id number] Adm Physician: Ordered by: ISIDRA CISSE MD Report #: [id number] Location: [facility] Room/Bed: Procedure: [id number] DX/CHEST 2 VIEWS Exam Date: 09/18/17 Exam Time: 1415 REPORT STATUS: Signed PROCEDURE: Frontal and lateral views of the chest. COMPARISON: None. INDICATIONS: COUGH, DYSPNEA FINDINGS: Lines/tubes: None. Lungs: Limited by low lung volumes and body habitus. Mild hazy opacities in bilateral base. Pleura: There is no pleural effusion or pneumothora x. Heart and mediastinum: The heart and the mediastinum are normal. Bones: No acute bony abnormality. IMPRESSION: Mild hazy opacities in bilateral base, likely atelectasis. Developing pneumonia cannot be entir yani excluded. Dictated by: Coco Wharton M.D. on 09/18/2017 at 14:46 Electronically approved by: Coco Wharton M.D. on 09/18/2017 at 14:46 Dictated By: COCO WHARTON MD 1446 Transcribed By: LORETO on 09/18/17 1446 COPY TO: ISIDRA CISSE MD
--- OUTSIDE RECORDS SUMMARY | 2020-04-10 10:02 | XMS REPORT | Clinical Summary ---
Author Author [facility] Organization [facility] Address Unknown Phone Unavailable Care Team Providers Care Obiee Report Developer Name Role Phone Ana Wood MD PCP Allergies Comments Active Allergy Reactions Severity Noted Date No Known Drug Allergies 07/29/2014 Medications End Date Status Medication Sig Dispensed Refills Start Date Active polyvinyl alcohol Instill 1 15 mL 0 07/11/20 1 (ARTIFICIAL TEARS) 1.4 % Drop in each 4 ophthalmic eye as needed solutionIndications: for dry Seasonal allergies eye(s). Active aspirin 325 mg Take 1 tablet 30 tablet 11 tabletIndications: Left by mouth 6 sided numbness daily. Active atorvastatin (LIPITOR) 80 Take 1 tablet 30 tablet 1 mg tabletIndications: by mouth at 6 Left sided numbness, bedtime Other hyperlipidemia nightly. Active NIFEdipine (PROCARDIA XL) Take 1 tablet 30 tablet 1 90 mg extended release by mouth 6 tabletIndications: daily. Essential hypertension Active loratadine (CLARITIN) 10 Take 1 tablet 90 tablet 1 mg tabletIndications: by mouth 6 Seasonal allergic daily Prn rhinitis due to pollen congestion. [place]. Active losartan (COZAAR) 100 mg Take 100 mg 0 tablet by mouth daily. 03/20/2020 Discontinued (Therapy comple sky) metFORMIN (GLUCOPHAGE) Take 1 tablet 90 tablet 1 1 500 mg tabletIndications: by mouth 6 Prediabetes daily (with dinner) for prediabetes. Active Problems Problem Noted Date Left sided numbness 06/15/2016 BMI 34.0-34.9,adult 06/24/2015 Dietary counseling and surveillance 06/24/2015 Numbness 08/17/2014 Acute ischemic stroke 07/11/2014 Seasonal allergies 07/11/2014 Dizziness 07/10/2014 Headache(784.0) 07/10/2014 Hypertension 07/10/2014 Hypertensive emergency Encounters Care Team Description Date Type Specialty Ana Wood MD Dyspnea, unspecified type (Primary Dx) 03/20/2020 Telephonic Family Practice Encounter after 03/21/2019 Immunizations Name Administration Dates Next Due Influenza Vaccine 06/24/2015 Family History Medical History Relation Name Comments Other Denies any family medical h istory Relation Name Status Comments Social History Date Tobacco Use Types Packs/Day Years Used Never Smoker Smokeless Tobacco: Never Used Drinks/Week oz/Week Comments Alcohol Use 7 Shots of liquor 5.8 Yes Sex Assigned at Date Recorded Not on file Industry Job Start Date Occupation Not on file Not on file Not on file Travel End Travel History Travel Start No recent travel history available. Last Filed Vital Signs Not on file Plan of Treatment Health Maintenance Due Date Last Done Comments Colorectal Cancer Scrn 2002 Annual (FIT/FOBT) Age 50 to 75 IMM Pneumococcal Age 65 2017 and Up IMM Influenza Seasonal 06/11/2020 06/24/2015 Oct to November (>/= 19 yrs) Results Not on fileafter 03/21/2019 Insurance Type Payer Benefit Subscriber ID Effective Phone Address Plan / Dates Group [employer] [place] CIGNA xxxxxxxx 2020-7 [address] [place] [address] BC/BS BCBS HMO xxxxxxxxxxxx 2015-P [phone] [id number] [place] [address] Advance Directives Date Inactivated Comments Code Status Date Activated 06/16/2016 4:33 PM Full Code 06/15/2016 11:31 AM 08/17/2014 7:07 PM Full Code 08/17/2014 9:04 AM
--- OUTSIDE RECORDS SUMMARY | 2020-04-10 10:08 | XMS REPORT | Continuity of Care Document ---
Author Author [facility] t Organization [facility] Address [address] [place] [address] Phone Unavailable Care Team Providers Care Axle And Frame Mechanic Name Role Phone MD MAREK CISSE MD PCP TISHA MAGALLON Attphys Unavailable Nina PHAM, nata Attphys BAIRON BARR Attphys Unavailable MAREK CISSE Attphys Unavailable Temitope HICKS Attphys Unavailable JAYSON LLOYD M.D. Attphys Unavailable TISHA MAGALLON Admphys Unavailable MAREK CISSE Admphys Unavailable Payers Payer Name Policy Type Policy Number Effective Date Expiration Date Temitope obrienaustin Nicole Medicare Complete [id number] 2017 00:00:00 [facility] NG OONxxxxxxxx2020-04/10/[id number] [place] [id number] xxxxxxxx 2020 00:00:00 2020 23:59:59 [facility] BC/BSBCBS [email or web address] [phone], [place] [address] xxxxxxxxxxxx 2015 00:00:00 [facility] Problems Condition Name Condition Details Condition Category Status Onset Date Resolution Date Last Treatment Date Treating Clinician Comments Source Left sided numbness Left sided numbness Disease Active 2016-06-15 00:00 :00 [facility] BMI 34.0-34.9,adult BMI 34.0-34.9,adult Disease Active 2015-06-24 00:00 :00 [facility] Dietary counseling and surveillance Dietary counseling and surve illance Disease Active 2015-06-24 00:00:00 [facility] Numbness Numbness Disease Active 2014-08-17 00:00:00 [facility] Acute ischemic stroke Acute ischemic stroke Disease Active 201 12-19-30 00:00:00 [facility] Seasonal allergies Seasonal allergies Disease Active 2014-07-11 00:00:0 0 [facility] Dizziness Dizziness Disease Active 2014-07-10 00:00:00 [facility] Headache(784.0) Headache(784.0) Disease Active 2014-07-10 00:00:00 [facility] Hypertension Hypertension Disease Active 2014-07-10 00:00:00 [facility] Hip pain, acute, right Hip pain, acute, right Problem HL7.CCDAR2 Active [facility] Diabetes Diabetes Problem HL7.CCDAR2 Active [facility] Bilateral sciatica Bilateral sciatica Problem HL7.CCDAR2 Active [facility] Influenza due to influenza virus, type A, human Influenza A Problem Active [facility] Pneumonia Pneumonia Problem Active [facility] Pneumonia due to severe acute respiratory syndrome coronavir us 2 (SARS-CoV-2) Problem Active [facility] Nausea and vomiting Problem Active [facility] Hypoxia Problem Active [facility] Hypertensive emergency Hypertensive emergency Disease Active [facility] Allergies, Adverse Reactions, Alerts Allergy Name Allergy Type Status Severity Reaction(s) Onset Date Inacti ve Date Treating Clinician Comments Source No Known Allergies DA Active U 2019-07-22 00:00:00 [facility] Family History Family Member Diagnosis Comments Start Date Stop Date Source Mother Family history of malignant neoplasm [facility] unknown Other [facility] Social History Social Habit Start Date Stop Date Quantity Comments Source Sex Assigned At [facility] Alcohol intake 2016-07-07 00:00:00 2016-07-07 00:00:00 Current drinker of alcohol (finding) [facility] Smoking Status Start Date Stop Date Source Never smoker [facility] Medications Ordered Medication Name Filled Medication Name Start Date Stop Da te Current Medication? Ordering Clinician Indication Dosage Frequency Signature (SIG) Comments Components Source Azithromycin (Zithromax) 500 Mg TABLET Azithromycin (Zithrom ax) 500 Mg TABLET 2020-03-25 06:39:00 Yes 500 Daily [facility] Prednisone Prednisone 2020-03-25 06:39:00 Yes 40 Candy ly [facility] Ascorbic Acid Ascorbic Acid 2020-03-25 06:38:00 Yes 500 Twice A Day [facility] Benzonatate (Tessalon Perle) 100 Mg CAPSULE Benzonatat e (Tessalon Perle) 100 Mg CAPSULE 2020-03-25 06:38:00 Yes 100 Three Times A Da y [facility] Loratadine Loratadine 2020-03-25 06:38:00 Yes 10 Candy ly [facility] Nifedipine (Nifedipine Er) 30 Mg TAB.ER.24 Nifedipine (Nifedipine Er) 30 Mg TAB.ER.24 2020-03-25 06:38:00 Yes 30 Every 12 Hours [facility] Zinc Sulfate Zinc Sulfate 2020-03-25 06:38:00 Yes 220 Daily [facility] losartan (COZAAR) 100 mg tablet 2020-03-20 13:42:49 Yes 100mg QD Take 100 mg by mouth daily. [facility] Azithromycin (Z-Cliff) 250 Mg TABLET Azithromycin (Z-Cliff) 250 Mg TABLET 2019-06-23 12:58:00 2020-03-25 00:00:00 No 1 As Directed [facility] metFORMIN (GLUCOPHAGE) 500 mg tablet 2016-08-02 00:00: 00 2020-03-20 00:00:00 No Prediabetes 500mg Take 1 tablet b y mouth daily (with dinner) for prediabetes. [facility] atorvastatin (LIPITOR) 80 mg tablet 2016-07-07 00:00:00 Yes Other hyperlipidemia 80mg Take 1 tablet by mouth at bedtime nightly. [facility] NIFEdipine (PROCARDIA XL) 90 mg extended release tablet 2016-07-07 00:00:00 Yes Essential hypertension 90mg QD Take 1 tablet by mouth da carol. [facility] loratadine (CLARITIN) 10 mg tablet 2016-07-07 00:00:00 Yes Seasonal allergic rhinitis due to pollen 10mg QD Take 1 t ablet by mouth daily Prn congestion. guyanese. [facility] aspirin 325 mg tablet 2016-06-16 00:00:00 Yes Left sided numbness 325mg QD Take 1 tablet by mouth daily. [facility] polyvinyl alcohol (ARTIFICIAL TEARS) 1.4 % ophthalmic soluti on 2014-07-11 00:00:00 Yes Seasonal allergies 1[drp] I nstill 1 Drop in each eye as needed for dry eye(s). [facility] MetFORMIN HCl ER 500 MG Oral Tablet Extended Release 2 4 Hour MetFORMIN HCl ER 500 MG Oral Tablet Extended Release 24 Hour Yes R.N. [facility] AmLODIPine Besylate 5 MG Oral Tablet AmLODIPine Besylate 5 MG Oral Tablet Yes R.N. [facility] Escitalopram Oxalate 10 MG Oral Tablet Escitalopram Oxalate 10 M G Oral Tablet Yes R.N. [facility] Losartan Potassium 100 MG Oral Tablet Losartan Potassium 100 MG Ora l Tablet Yes R.N. [facility] TraZODone HCl TABS TraZODone HCl TABS Yes R.N. [facility] Aspirin 81 MG TABS Aspirin 81 MG TABS Yes R.N. [facility] Aspirin Aspirin Yes 1 Daily [facility] Atorvastatin Calcium Atorvastatin Calcium Yes 10 Today At 9:00PM [facility] Losartan/Hydrochlorothiazide (Losartan-Hctz 100-25 Mg Tab) 1 Each TABLET Losartan/Hydrochlorothiazide (Losartan-Hctz 100-25 Mg Tab) 1 Each TABLET Yes 1 Daily [facility] Amlodipine Besylate (Norvasc) 5 Mg TAB Amlodipine Besylate (Norv asc) 5 Mg TAB 2020-03-25 00:00:00 No 5 Daily [facility] Immunizations Ordered Immunization Name Filled Immunization Name Date Status Comments Source Influenza Vaccine 2015-06-24 00:00:00 Completed [facility] Vital Signs Vital Name Observation Time Observation Value Comments Source Body Temperature 2020-03-25 11:10:00 97.5 [degF] [facility] BMI (Body Mass Index) 2020-03-21 15:00:00 35.4 kg/m2 [facility] Weight 2020-03-21 10:20:00 233 [lb_av] [facility] BP Systolic 2018-04-02 10:58:00 132 mm[Hg] [facility] BP Diastolic 2018-04-02 10:58:00 76 mm[Hg] [facility] Height 2018-04-02 10:58:00 68 [in_us] [facility] Weight 2018-04-02 10:58:00 238 [lb_av] [facility] Body Mass Index Calculated 2018-04-02 10:58:00 36.19 kg/m2 [facility] Heart Rate 2018-04-02 10:58:00 80 /min [facility] Procedures Procedure Date / Time Performed Performing Clinician [facility] e Computed tomography of chest without contrast 2019-10-10 00:00:0 0 [facility] Computed tomography of chest with contrast 2019-06-26 00:00:00 [facility] X-ray of chest, two views 2019-06-23 00:00:00 MIMI HICKS [facility] [U] XRAY SPINE LUMBOSACRAL 2 OR 3 VWS [id number] 2018-04-02 00:00:00 [facility] [U] XRAY HIP UNILATERAL MIN 2 VWS RIGHT [id number] 2018-04-02 00:00:0 0 [facility] MRI Spine lumbar wo contrast [id number] 2018-04-02 00:00:00 [facility] MR Hip wo contrast [id number] 2018-04-02 00:00:00 [facility] History of Hernia Repair [facility] Plan of Care Planned Activity Planned Date Details Comments Source Future Scheduled Test 2020-06-11 00:00:00 IMM Influenza Seas onal Jun to November (>/= 19 yrs) [code = IMM Influenza Seasonal Jun to November (>/= 19 yrs)] [facility] Scheduled Test 2017 00:00:00 IMM Pneumococcal A ge 65 and Up [code = IMM Pneumococcal Age 65 and Up] [facility] Scheduled Test 2002 00:00:00 Screening for jayna arrington neoplasm of colon (procedure) [code = 777035245] [facility] Instructions COVID-19: 11/25/2019 [facility] Instructions Pneumonia - Viral [facility] Instructions Using Oxygen at Home [facility] Encounters Start Date/Time End Date/Time Encounter Type Admission Type Attendi [facility] Care Department Encounter ID Source 2019-10-10 08:14:00 2019-10-10 08:14:00 Registered Clinic 3 BAIRON IVY [facility] [id number] [facility] 2019-06-26 11:23:00 2019-06-26 11:23:00 Registered Clinic 3 [facility] [id number] [facility] 2019-06-23 11:03:00 2019-06-23 13:14:00 Departed Emergency Room 1 MIMI HICKS [facility] [id number] [facility] 2018-10-26 09:50:00 2018-10-26 09:50:00 Registered Clinic 3 [facility] [id number] [facility] 2018-04-02 09:00:00 2018-04-02 09:00:00 Appointment; JAYSON LLOYD M .D. BLUM, HENRY, M.D. [facility] [id number] [facility] Results Test Description Test Time Test Comments Results Result Comments Source Blood leukocytes automated count (number/volume) 2020-03-25 05:40:00 Test Item White Blood Count (test code = 6690-2) 12.50 4.8-10.8 [facility] erythrocytes automated count (number/volume)2020-03-25 05:40:00* Test Item Value Reference Range Interpretation Comments Red Blood Count (test code = 789-8) 4.50 4.3-5.7 [facility] hemoglobin measurement (moles/volume)2020-03-25 05:40:00* Test Item Value Reference Range Interpretation Comments Hemoglobin (test code = 36571-6) 14.1 14.0-18.0 [facility] CenterAutomated blood hematocrit (volume fraction)2020-03-25 05:40:00* Test Item Value Reference Range Interpretation Comments Hematocrit (test code = 4544-3) 41.2 38.2-49.6 [facility] CenterAutomated erythrocyte mean corpuscular yxvcrz2529-31-56 05:40:00* Test Item Value Reference Range Interpretation Comments Mean Corpuscular Volume (test code = 787-2) 91.6 81-99 [facility] CenterAutomated erythrocyte mean corpuscular hemoglobin (mass per erythrocyte)2020-03-25 05:40:00* Test Item Value Reference Range Interpretation Comments Mean Corpuscular Hemoglobin (test code = 785-6) 31.3 28-32 [facility] CenterAuton license [facility] erythrocyte mean corpuscular hemoglobin concentration measurement (mass/volume)2020-03-25 05:40:00* Test Item Value Reference Range Interpretation Comments Mean Corpuscular Hemoglobin Concent (test code = 786-4) 34.2 31-35 [facility] CenterRDW FghEu-Sxo6423-48-15 05:40:00* Test Item Value Reference Range Interpretation Comments Red Cell Distribution Width (test code = 35818-4) 12.6 11.7 -14.4 [facility] CenterAutomated blood platelet count (count/volume)2020-03-25 05:40:00* Test Item Value Reference Range Interpretation Comments Platelet Count (test code = 777-3) 334 140-360 [facility] blood segmented neutrophil count as percentage of total vjvemzmrsc1887-32-29 05:40:00* Test Item Value Reference Range Interpretation Comments Neutrophils (%) (Auto) (test code = 46719-4) 73.7 38.7-80.0 [facility] CenterAutomated blood lymphocyte count as percentage ot total nkbxpwvmlz3305-60-21 05:40:00* Test Item Value Reference Range Interpretation Comments Lymphocytes (%) (Auto) (test code = 736-9) 16.2 18.0-39.1 [facility] CenterAutomated blood monocyte count as percentage of total crhgnefbli0987-74-96 05:40:00* Test Item Value Reference Range Interpretation Comments Monocytes (%) (Auto) (test code = 5905-5) 8.1 4.4-11.3 [facility] CenterAutomated blood eosinophil count as percentage of total rglytmpeec4800-37-35 05:40:00* Test Item Value Reference Range Interpretation Comments Eosinophils (%) (Auto) (test code = 713-8) 0.1 0.0-6.0 [facility] CenterAutomated blood basophil count as percentage of total vxevrbwdus9284-27-68 05:40:00* Test Item Value Reference Range Interpretation Comments Basophils (%) (Auto) (test code = 706-2) 0.2 0.0-1.0 [facility] CenterFluoroscopic procedure less than one hour degfhgqr3576-77-82 05:40:00* Test Item Value Reference Range Interpretation Comments IM GRANULOCYTES % (test code = IM GRANULOCYTES %) 1.7 0.0- 1.0 [facility] CenterAutomated blood neutrophil count 2020-03-25 05:40:00* Test Item Value Reference Range Interpretation Comments Neutrophils # (Auto) (test code = 751-8) 9.2 2.1-6.9 [facility] CenterBlood lymphocytes count (number/volume) 2020-03-25 05:40:00* Test Item Value Reference Range Interpretation Comments Lymphocytes # (Auto) (test code = 64737-9) 2.0 1.0-3.2 [facility] CenterBlridge[facility] monocytes automated count (number/volume)2020-03-25 05:40:00* Test Item Value Reference Range Interpretation Comments Monocytes # (Auto) (test code = 742-7) 1.0 0.2-0.8 [facility] CenterAutomated blood eosinophil count 2020-03-25 05:40:00* Test Item Value Reference Range Interpretation Comments Eosinophils # (Auto) (test code = 711-2) 0.0 0.0-0.4 [facility] CenterAutomated blood basophil count (count/volume)2020-03-25 05:40:00* Test Item Value Reference Range Interpretation Comments Basophils # (Auto) (test code = 704-7) 0.0 0.0-0.1 [facility] CenterFluoroscopic procedure less than one hour gqbqlbge3357-06-47 05:40:00* Test Item Value Reference Range Interpretation Comments Absolute Immature Granulocyte (auto (tez t code = Absolute Immature Granulocyte (auto) 0.21 0-0.1 [facility]um or plasma sodium measurement (moles/volume)2020-03-25 05:40:00* Test Item Value Reference Range Interpretation Comments Sodium Level (test code = 2951-2) 141 136-145 [facility] Texaserum or plasma potassium measurement (moles/volume)2020-03-25 05:40:00* Test Item Value Reference Range Interpretation Comments Potassium Level (test code = 2823-3) 3.7 3.5-5.1 [facility] Texaserum or plasma chloride measurement (moles/volume)2020-03-25 05:40:00* Test Item Value Reference Range Interpretation Comments Chloride Level (test code = 2075-0) 108 98-107 [facility] Texaserum or plasma carbon dioxide, total measurement (moles/volume)2020-03-25 05:40:00* Test Item Value Reference Range Interpretation Comments Carbon Dioxide Level (test code = 2028-9) 26 22-29 [facility] Texaserum or plasma anion fjn7903-13-31 05:40:00* Test Item Value Reference Range Interpretation Comments Anion Gap (test code = 56957-5) 10.7 8-16 [facility]erum or plasma urea nitrogen measurement (mass/volume)2020-03-25 05:40:00* Test Item Value Reference Range Interpretation Comments Blood Urea Nitrogen (test code = 3094-0) 18 7-26 [facility] Texaserum or plasma creatinine measurement (mass/volume)2020-03-25 05:40:00* Test Item Value Reference Range Interpretation Comments Creatinine (test code = 2160-0) 0.76 0.72-1.25 [facility] Texaserum or plasma urea nitrogen/creatinine mass iuhcd1657-95-58 05:40:00* Test Item Value Reference Range Interpretation Comments BUN/Creatinine Ratio (test code = 3097-3) 24 6-25 [facility] CenterEstimated glomerular filtration rate (GFR) kuhmakwgsdjkq7161-90-84 05:40:00* Test Item Value Reference Range Interpretation Comments Estimat Glomerular Filtration Rate (test code = 708324971) > 60 >60 Ranges were taken from the National Kidney Disease Education Program and the [facility] Foundation Hospitalal Kidney Foundation literature.Reference ranges:60 or greater: Xdlcwu76-15 ( for 3 consecutive months): Chronic kidney disease 15 or less: Kidney failureMichael [facility]. [facility]y [facility] Medical CenterGlucose sxtbejngygn0201-12-26 05:40:00* Test Item Value Reference Range Interpretation Comments Glucose Level (test code = UDK1654) 104 74-118 [facility] Texaserum or plasma calcium measurement (mass/volume)2020-03-25 05:40:00* Test Item Value Reference Range Interpretation Comments Calcium Level (test code = 51396-2) 8.5 8.4-10.2 [facility]erum or plasma total bilirubin measurement (mass/volume)2020-03-25 05:40:00* Test Item Value Reference Range Interpretation Comments Total Bilirubin (test code = 1975-2) 0.4 0.2-1.2 [facility] CenterFluoroscopic procedure less than one hour tbydndil3717-50-13 05:40:00* Test Item Value Reference Range Interpretation Comments Aspartate Amino Transf (AST/SGOT) (test code = Aspartate Amino Transf (AST/SGOT)) 57 5-34 [facility] Texaserum or plasma alanine aminotransferase measurement (enzymatic activity/volume)2020-03-25 05:40:00* Test Item Value Reference Range Interpretation Comments Alanine Aminotransferase (ALT/SGPT) (test code = 1742-6) 88 0-55 [facility] or plasma protein measurement (mass/volume)2020-03-25 05:40:00* Test Item Value Reference Range Interpretation Comments Total Protein (test code = 2885-2) 6.4 6.5-8.1 [facility] Texaserum or plasma albumin measurement (mass/volume)2020-03-25 05:40:00* Test Item Value Reference Range Interpretation Comments Albumin (test code = 1751-7) 2.3 3.5-5.0 [facility] CenterPlasma globulin measurement (mass/volume) 2020-03-25 05:40:00* Test Item Value Reference Range Interpretation Comments Globulin (test code = 04770-2) 4.1 2.3-3.5 [facility]erum or plasma albumin/globulin mass iziqp5127-00-95 05:40:00* Test Item Value Reference Range Interpretation Comments Albumin/Globulin Ratio (test code = 1759-0) 0.6 0.8-2.0 [facility] or plasma alkaline phosphatase measurement (enzymatic activity/volume)2020-03-25 05:40:00* Test Item Value Reference Range Interpretation Comments Alkaline Phosphatase (test code = 6768-6) 55 40-150 [facility]erum or plasma creatine kinase measurement (enzymatic activity/volume)2020-03-22 12:58:00* Test Item Value Reference Range Interpretation Comments Creatine Kinase (test code = 2157-6) 49 30-200 [facility] Texaserum or plasma creatine kinase MB measurement (mass/volume)2020-03-22 12:58:00* Test Item Value Reference Range Interpretation Comments Creatine Kinase MB (test code = 66464-4) 1.00 0-5.0 [facility] CenterTroponin I measurement by highly sensitive enzyme pvolimyhatq4178-61-78 12:58:00* Test Item Value Reference Range Interpretation Comments Troponin I (test code = 78189-0) 0.004 0-0.300 [facility] CenterCHEST SINGLE (PORTABLE)2020-03-22 08:33:00 [facility] [address] [address] Patient Name: DANUTA SHAY MR #: [id number] : 1950 Age/Sex: 69/M Req #: [id number] Adm Physician: TISHA MAGALLON MD Ordered by: BAIRON BARR MD Report #: [id number] Location: [facility] Room/Bed: [address] [place] [address] Procedure: [id number] DX/CHEST SINGLE (P ORTABLE) Exam Date: 03/22/20 [...] Transcribed By: KULDIP on 03/22/20833 COPY TO: BAIRON BARR MD Serum or plasma triglyceride measurement (mass/volume)2020-03-22 05:15:00* Test Item Value Reference Range Interpretation Comments Triglycerides Level (test code = 2571-8) 67 0-149 [facility]um or plasma cholesterol measurement (mass/volume)2020-03-22 05:15:00* Test Item Value Reference Range Interpretation Comments Cholesterol Level (test code = 2093-3) 128 0-199 Less than 200 mg/dL Low Kyvf727 - 239 mg/dL Borderline Mtxl832 m g/dl and greater High Risk [facility]um or plasma cholesterol in LDL measurement (mass/volume) 2020-03-22 05:15:00* Test Item Value Reference Range Interpretation Comments LDL Cholesterol (test code = 2089-1) 91 60-130 [facility] or plasma cholesterol in HDL measurement (mass/volume)2020-03-22 05:15:00* Test Item Value Reference Range Interpretation Comments HDL Cholesterol (test code = 2085-9) 24 40-60 [facility]erum or plasma total cholesterol/cholesterol in HDL mass iffmt1419-39-66 05:15:00* Test Item Value Reference Range Interpretation Comments Cholesterol/HDL Ratio (test code = 9830-1) 5.3 3.9-4.7 [facility] [facility]2020-03-21 11:55:00 [facility] [address] [place] [address] Patient Name: DANUTA SHAY MR #: [id number] : 1950 Age/Sex: 69/M Req #: [id number] Adm Physician: Ordered by: TRICIA POWERS MD Report #: [id number] Location: ER Room/Bed: Procedure: [id number] DX/CHEST SINGLE (PORTABLE) Exam Date: 03/21/20 Exam [...] 1202 COPY TO: TRICIA POWERS MD Blood uveejwn3776-60-28 10:40:00* Test Item Value Reference Range Interpretation Comments Blood Culture (test code = 74522864) NO GROWTH AFTER 72 HOURS [facility] CenterProthrombin time (PT) in platelet poor plasma by coagulation zhbvd8444-98-29 10:30:00* Test Item Value Reference Range Interpretation Comments Prothrombin Time (test code = 5902-2) 13.5 11.9-14.5 [facility] CenterINR in Platelet poor plasma by Coagulation umqlr5053-58-47 10:30:00* Test Item Value Reference Range Interpretation Comments Prothromb Time International Ratio (test code = 6301-6) 0.97 Oral Anticoagulant Therapy INR Values:1. Low Intensity Therapy 1.5 - 2.02 . Moderate Intensity Therapy 2.0 - 3.03. High Intensity Therapy(1) 2.5 - 3. 54. High Intensity Therapy(2) 3.0 - 4.05. Panic Value INR > 5.0 [facility] CenterActivated partial thromboplastin time (aPTT) in platelet poor plasma by coagulation amqik5222-23-33 10:30:00* Test Item Value Reference Range Interpretation Comments Activated Partial Thromboplast Time (test code = 63941-5) 32.6 23.8-35.5 [facility] CenterUrine color adghjncdrqrun0034-96-14 10:30:00* Test Item Value Reference Range Interpretation Comments Urine Color (test code = 5778-6) ORANGE YELLOW [facility] CenterUrine eoaurar0438-95-15 10:30:00* Test Item Value Reference Range Interpretation Comments Urine Clarity (test code = 79626-4) SL CLOUDY CLEAR [facility] Texaspecific gravity of Urine by Test strip 2020-03-21 10:30:00* Test Item Value Reference Range Interpretation Comments Urine Specific [place] (test code = 5811-5) >=1.030 1.010-1.02 5 [facility] CenterUrine pH measurement by automated test brjky6137-23-64 10:30:00* Test Item Value Reference Range Interpretation Comments Urine pH (test code = 28962-9) 6.5 5-7 [facility] CenterUrine leukocyte esterase detection by kzebxddh9318-77-40 10:30:00* Test Item Value Reference Range Interpretation Comments Urine Leukocyte Esterase (test code = 5799-2) NEGATIVE NEGATIVE [facility] CenterUrine nitrite mphfmkewu9101-78-27 10:30:00* Test Item Value Reference Range Interpretation Comments Urine Nitrite (test code = 12182-5) NEGATIVE NEGATIVE [facility] CenterUrine protein measurement by test strip (mass/volume)2020-03-21 10:30:00* Test Item Value Reference Range Interpretation Comments Urine Protein (test code = 5804-0) >=300 NEGATIVE [facility] CenterUrine glucose hjlsibvmw3569-14-77 10:30:00* Test Item Value Reference Range Interpretation Comments Urine Glucose (UA) (test code = 2349-9) NEGATIVE NEGATIVE [facility] CenterUrine ketones detection by automated test cmveh2293-67-53 10:30:00* Test Item Value Reference Range Interpretation Comments Urine Ketones (test code = 61899-6) NEGATIVE NEGATIVE [facility] CenterUrine urobilinogen measurement by test strip (mass/volume)2020-03-21 10:30:00* Test Item Value Reference Range Interpretation Comments Urine Urobilinogen (test code = 87401-8) 2.0 0.2-1 [facility] CenterUrine total bilirubin measurement (mass/volume)2020-03-21 10:30:00* Test Item Value Reference Range Interpretation Comments Urine Bilirubin (test code = 1978-6) SMALL NEGATIVE [facility] CenterUrine erythrocytes modiufmbl6077-61-42 10:30:00* Test Item Value Reference Range Interpretation Comments Urine Blood (test code = 42016-2) TRACE NEGATIVE [facility] CenterAutomated urine sediment leukocyte count by microscopy (number/high power field)2020-03-21 10:30:00* Test Item Value Reference Range Interpretation Comments Urine WBC (test code = 5821-4) 6-10 0-5 [facility] CenterErythrocytes detection in urine sediment by light dfmpgflkit9717-91-00 10:30:00* Test Item Value Reference Range Interpretation Comments Urine RBC (test code = 00716-7) 6-10 0-5 [facility] CenterBacteria detection in urine sediment by light wshcaltqzy6630-63-15 10:30:00* Test Item Value Reference Range Interpretation Comments Urine Bacteria (test code = 63629-4) RARE NONE [facility] CenterEpithelial cells detection in urine sediment by light hvxljwkkvl8760-58-64 10:30:00* Test Item Value Reference Range Interpretation Comments Urine Epithelial Cells (test code = 20843-0) FEW NONE [facility] CenterFluoroscopic procedure less than one hour mfrnqoce6498-33-88 10:30:00* Test Item Value Reference Range Interpretation Comments Hemoglobin A1c Percent (test code = Hemoglobin A1c Percent) 6.1 4.0-7.0 [facility] CenterFluoroscopic procedure less than one hour kvwwvbkw0950-43-34 10:30:00* Test Item Value Reference Range Interpretation Comments Lactic Acid Level (test code = Lactic Acid Level) 1.3 0.5- 2.0 [facility] CenterBNP Bcc-bBcc6537-06-11 10:30:00* Test Item Value Reference Range Interpretation Comments B-Type Natriuretic Peptide (test code = 05520-8) 25.4 0-100 [facility] CenterFluoroscopic procedure less than one hour qdgjkyon6812-99-07 10:30:00* Test Item Value Reference Range Interpretation [...] from individuals suspected of COVID-19 by their [facility] provider. This test has not been Food [...] under 564(g) of the ACT.Testing performed by [address] [address]JJCMichael [facility] Medical CenterCT CHEST DT6269-06-54 10:09:00 [facility] [address] [place] [address] Patient Name: DANUTA SHAY MR #: [id number] : 1950 Age/Sex: 68/M Req #: [id number] Adm Physician: Ordered by: BAIRON BARR MD Report #: [id number] Location: [place] Room/Bed: Procedure: [id number] CT/CT C HEST WO Exam Date: 10/10/19 Exam Time: 939 REPORT STATUS: Signed EXAM: CT Chest WIT HOUT contrast INDICATION: [id number] PUL INFILTRATE COMP ARISON: CT chest 06/26/2019 TECHNIQUE: Chest was scanned utilizing a mult Whis[employer] Mediatector helical scanner from the lung apex through [...] pneumonia. No acute thoracic abnormality. Signed by: Michelle Kim MD on 10/10/2019 10:13 AM Dictated By: MICHELLE KIM MD Transcribed B y: KULDIP on 10/10/193 COPY TO: BAIRON BARR MD,ROXI 2019-08-01 07:38:00 RUN DATE: 08/01/19 [place] - [facility] PAGE 1 RUN TIME: 737 Specimen Inqui ry RUN USER: INTERFACE PATIENT: DANUTA SHAY ACCT #: [id number] LOC: [facility] U #: [id number] AGE/SX: 68/M ROOM: RE07/29/19[facility]: Bairon Barr MD : 54 BED: DIS: STATUS: [facility] TLOC: SPEC #: [id number] RECD: 07/29/19 STATUS: DEVENDRA LLOYD #: [id number] RICH: 07/29/[address] [facility] [address]: Bairon Barr MD ENTERED: 07/29/19 SP TYPE: FL OTHER OTHR DR: Marek Carlos MDORDERED: GROSS COPIES TO: Marek Cerda MD [address] [place] [address] Bairon Barr MD [address] [place] [address] PROCEDURES: Constanza HARPER (07/30/19-145) TISSUES: 1. RIGHT UPPER LOBE OF LUNG, NOS - BRUSH ING 4 SLIDES 2. RIGHT UPPER LOBE OF LUNG, NOS - BAL 10 ML PINK C LINICAL HISTORY COLLECTION DATE: 07/29/19 RUL INFILTRATES FINAL DIAGNOSIS Lung, right upper lobe brushing: ACUTE INFLAMMATION NEGATIVE FOR MALIGNANCY Lung, right upper lobe, bronchoalveolar lavage : ACUTE INFLAMMATION NEGATIVE FOR MALIGNANCY FA/gen Montano 40055, [id number] CONTINUED ON NEXT PAGE RUN DATE: 08/01/19 [place] - Lab PAGE 2 RUN TIME: 07 Spec imen Inquiry RUN USER: INTERFACE SPEC #: [id number] PATIENT: DANUTA MORGAN #[id number] (Continued) MA CROSCOPIC The first specimen is [...] processing and cytologic evaluation. GROSS PERFORMED AT [facility] [address] [place] [address] (p)[phone] MICROSCOPIC Microscopic evaluation of smears of the [...] controls performed, stain appropriately. MICROSCOPIC PERFORMED AT [facility] [address] [place] [address] (p)[phone] PERFORMING SITE Diagnosis perf ormed at: [facility] AYDE joya [address] [place] [address] CONTINUED ON NEXT PAGE -RUN DATE: 08/01/19 [place] - Lab PAGE 3 RUN TIME: 737 Specimen Inquiry RUN USER: INTERFACE SPEC #: [id number] PATIENT: DANUTA SHAY #[id number] (Continued) Signed SIGNATURE ON Isabelle Manuel Galindo MD 08/01/19 0738 END OF REPORT [facility] [place] FLD CELL CT/HHEQ4981-98-13 10:53:00* Test Item Value Reference Range Interpretation [...] (LIMITED FOR EVALUATION). BRON[facility] [place] FLD CELL CT/DPQK7746-13-50 10:33:00* Test Item Value Reference Range Interpretation [...] (LIMITED FOR EVALUATION). [facility] [place] FLD CELL CT/NYEQ5307-56-40 11:47:00* Test Item Value Reference Range Interpretation [...] (test code = REVIEW) PATHOLOGIST BASIC METABOLIC HJIKI2687-07-25 16:18:00* Test Item Value Reference Range Interpretation [...] CA) 9.1 mg/dL 8.5-10.1 N BASIC METABOLIC LIVBE9796-98-74 16:14:00* Test Item Value Reference Range Interpretation [...] code = CA) mg/dL 8.5-10.1 CBC W/AUTO MQHQ1432-76-09 16:05:00* Test Item Value Reference Range Interpretation [...] NRBC#) 0.00 K/mm3 0.0-0.1 N CBC W/AUTO FJNG7632-99-20 16:04:00* Test Item Value Reference Range Interpretation [...] code = BA#) K/mm3 0.0-0.2 CT CHEST J5434-59-91 12:39:00 [place] [address] Patient Name: DANUTA SHAY MR #: [id number] : 1950 Age/Sex: 68/M Req #: [id number] Adm Physician: Ordered by: MAREK CISSE MD Report #: [id number] Location: [place] Room/Bed: Procedure: [id number] CT/ CT CHEST W Exam Date: 06/26/19 [...] Hermes JOINER on 06/26/19 1400 COPY TO: MAREK CISSE MD CHEST 2 SZLAC5918-87-71 12:21:00 [place] [address] Patient Name: DANUTA SHAY MR #: [id number] : 1950 Age/Sex: 68/M Req #: [id number] Adm Physician: Ordered by: MIMI HICKS MD Report #: [id number] Location: ER Room/Bed: Procedure: [id number] DX/ CHEST 2 VIEWS Exam Date: Exam [...] By: KULDIP on 06/23/191226 COPY TO: MIMI IHCKS MD US ABDOMEN COMPLETE 2018-10-26 12:01:00 [place] [address] Patient Name: DANUTA SHAY MR #: [id number] : 1950 Age/Sex: 67/M Req #: [id number] Adm Physician: Ordered by: MAREK CISSE MD Report #: [id number] Location: [place] Room/Bed: Procedure: [id number] US/ US ABDOMEN COMPLETE Exam Date: 10/26/18 [...] WES MONROE on 10/26/18 120 COPY TO: MAREK CISSE MD MR Hip wo contrast [id number] 10:41:00* Test Item Value Reference Range Interpretation Comments Hip wo contrast MR (test code = Hip wo contrast MR) Ca ncel Reason: Condition Doesn't Permit [facility][U] XRAY SPINE LUMBOSACRAL 2 OR 3 VWS [address]25[address] 2018-04-02 10:24:00Images acquired, not reported on this accession number. [facility][U] XRAY HIP UNILATERAL MIN 2 VWS RIGHT 01609 2018-04-02 10:19:00Images acquired, not reported on this accession number. [place] [address] Patient Name: DANUTA SHAY MR #: [id number] : 1950 Age/Sex: 67/M Req #: [id number] Adm Physician: Ordered by: MAREK CISSE MD Report #: [id number] Location: [facility] Room/Bed: Procedure: [id number] DX/HEEL LT Exam Date: Exam Time: 1345 REPORT STATUS: Signed PRO CEDURE: X-RAY LEFT HEEL COMPARISON: None. INDICATIONS: LEFT HE EL PAIN FINDINGS: See conclusion. CONCLUSION: No acute fra cture or dislocation of the left calcaneus. Dictated by: Trung khan M.D. on 01/17/2018 at 15:33 Electronically approved by: Trung Beasley i, M.D. on 01/17/2018 at 15:33 Dictated By: TRUNG Benson lectronically Signed By: TRUNG WHARTON MD on 01/17/18 153 Transcribed By: [facility] E on 01/17/18 153 COPY TO: MAREK CISSE MD CHEST 2 VIEWS [place] [address] Patient Name: DANUTA SHAY MR #: [id number] : Age/Sex: 66/M Req #: [id number] Adm Physician: MAREK ANAYA MD Ordered by: MAREK CISSE MD Report #: [id number] Loca tion: IMCU Room/Bed: [facility] 180-1 Procedure: [id number] DX/CHEST 2 VIEWS Exam Date: 09/21/17 Exam [...] Transcribed By: LORETO on 09/21/171648 COPY TO: MAREK CISSE MD CT CHEST [place] [address] Patient Name: DANUTA SHAY MR #: [id number] : Age/Sex: 66/M Req #: [id number] Adm Physician: MAREK ANAYA MD Ordered by: TRICIA POWERS MD Report #: [id number] Locati on: [facility] Room/Bed: [facility] 180-1 Procedure: [id number] CT /CT CHEST WO Exam Date: 09/19/17 [...] 7:03 AM Dictated By: SOFÍA LYNCH MD [facility] Signed By: SOFÍA LYNCH MD on 09/19/17702 Transcribed By: KULDIP on 05/29 COPY TO: TRICIA POWERS MD CHEST [facility] (PORTABLE) [place] [address] Patient Name: DANUTA SHAY MR #: [id number] : Age/Sex: 66/M Req #: [id number] Adm Physician: Ordered by: ELIZABETH VILLAGOMEZ ELECTRIC POWER LINE EXAMINER Report #: [id number] Location: ER Room/Bed : Procedure: DX/CHEST SINGLE [...] KULDIP on 09/18/17 COPY TO: ELIZABETH VILLAGOMEZ ELECTRIC POWER LINE EXAMINER CHEST 2 VIEWS [place] [address] Patient Name: DANUTA SHAY MR #: [id number] : 1950 Age/Sex: 66/M Req #: [id number] Adm Physician: Ordered by: MAREK CISSE MD Report #: [id number] Location: [facility] Room/Bed: Procedure: [id number] DX/CHEST 2 VIEWS Exam Date: 09/18/17 Exam [...] cannot be entir yani excluded. Dictated by: Trung Wharton M.D. on 09/18/2017 at 14:46 Electronically approved by: Trung Wharton M.D. on 09/18/2017 at 14:46 Dictated By: TRUNG WHARTON MD 1446 Transcribed By: LORETO on 09/18/17 1446 COPY TO: MAREK CISSE MD
--- OUTSIDE RECORDS SUMMARY | 2020-04-10 10:08 | XMS REPORT | Clinical Summary ---
Author Author [facility] Distr ict Organization [facility] Address Unknown Phone Unavailable Care Team Providers Care Top Steep Tender Name Role Phone Ana Wood MD PCP [...] daily Prn rhinitis due to pollen congestion. serbian. Active losartan (COZAAR) 100 mg Take 100 [...] Address Plan / Dates Group [employer] [place] CIGNA xxxxxxxx 2020-7 [address] [place] [address] BC/BS BCBS HMO xxxxxxxxxxxx 2015-P [phone] [address] [place] [address] Advance Directives Date Inactivated Comments Code Status Date Activated 06/16/2016 4:33 PM Full Code 06/15/2016 11:31 AM 08/17/2014 7:07 PM Full Code 08/17/2014 9:04 AM
== END 2020-03-25 14:30 | disposition home health service (06) | DRG 177 ==
LOC: ER 10:25 → ERHOLD 10:33 → IMCU 14:59 → OBSVTOIN 03-23 09:46
PROVIDERS: ADMIT Internal Medicine; ATTEND Internal Medicine
PROC: 8E0ZXY6 Isolation (ICD-10-PCS; principal; 2020-03-21)
DX: U07.1 COVID-19 (principal); J12.89 Other viral pneumonia; J96.91 Respiratory failure, unspecified with hypoxia; J15.9 Unspecified bacterial pneumonia; I10 Essential (primary) hypertension; Z86.73 Personal history of transient ischemic attack (TIA), and cerebral infarction without residual deficits; E66.9 Obesity, unspecified; Z68.35 Body mass index [BMI] 35.0-35.9, adult; F41.9 Anxiety disorder, unspecified
CPT/HCPCS: 36415; 71045; 80053; 80061; 81001; 82550; 82553; 83036; 83605; 83880; 84484; 85025; 85610; 85730; 87040; 87086; 93005; 97139; 99285; G0378; J0360; J0456; J0696; J1100; J1650; J7030; J7050; U0002